=== PATIENT | male | born 1965 | race Caucasian/White ===

== ENCOUNTER 2019-10-05 23:50 | Emergency (ER) | payer BC, SELFPAY ==
--- NOTE | ~2019-10-05 | CT_ITS ---
EXAMINATION: CT abdomen pelvis w con DATE: 10/06/2019 01:48 INDICATION: Abdominal pain and bloating TECHNIQUE: Computed tomography (CT) of the abdomen and pelvis was performed back of Visipaque intrave nous contrast. Automated exposure control and iterative reconstruction technique were employed. The d ose-length product was 1575.66 mGy-cm. COMPARISON: 10/11/2013 FINDINGS: Minimal dependent atelectasis in the right lower lobe. Heart size is normal. No pericardial or pleura l effusion. Small sliding-type hiatal hernia. Small geographic region of likely focal hepatic steatos is along the gallbladder fossa. Gallbladder, spleen, pancreas and bilateral adrenal glands are normal . Bilateral subcentimeter low-attenuation likely renal cysts. There are also bilateral nonobstructing renal stones measuring 2 mm a lower pole calyx of the right kidney and 2-3 mm in a lower pole calyx of the left kidney. Air-fluid level within a 4.5 cm duodenal diverticulum which appears to arise from the third portion of the duodenum. No bowel obstruction. Appendix is normal. There is moderate colon ic diverticulosis with a sigmoid predominance. Focal wall thickening along the sigmoid colon with mil d surrounding stranding which also appears to surround adjacent small epiploic appendage. Several sma ll lymph nodes along the surrounding sigmoid mesentery. Bladder and prostate are unremarkable. Bilate ral fat-containing inguinal hernias. No abscess or free intraperitoneal gas or fluid. Mild lower lumb ar spondylosis. IMPRESSION: 1. Mild inflammatory stranding and mild sigmoid mesenteric lymphadenopathy surrounding a focal region of wall thickening at the mid sigmoid colon. Differential would include malignancy and diverticuliti s. Recommend colonoscopy for further evaluation. 2. Bilateral nonobstructing nephrolithiasis. 3. Small sliding-type hiatal hernia. 4. Bilateral fat-containing inguinal hernias. Reviewed, dictated and finalized at location A. IMPRESSION: 1. Mild inflammatory stranding and mild sigmoid mesenteric lymphadenopathy surr ounding a focal region of wall thickening at the mid sigmoid colon. Differentia l would include malignancy and diverticulitis. Recommend colonoscopy for furthe r evaluation. 2. Bilateral nonobstructing nephrolithiasis. 3. Small sliding-type hiatal hernia. 4. Bilateral fat-containing inguinal hernias.
--- NOTE | ~2019-10-05 | XR_ITS ---
EXAMINATION: XR chest 2V DATE: 10/06/2019 00:37 INDICATION: Shortness of breath TECHNIQUE: PA and lateral views of the chest were obtained. COMPARISON: Chest radiograph dated 06/22/2017 FINDINGS: The lungs remain clear with no focal airspace opacities, pulmonary edema, pleural effusion or pneumot horax. The cardiomediastinal silhouette is normal. Visualized bones and soft tissues are unremarkable . IMPRESSION: 1. No acute cardiopulmonary disease. Reviewed, dictated and finalized at location A.
[2019-10-05 23:59] VITALS: BP 154/92; PULSE 80; RESP 18; TEMP 36.6; O2SAT 100
--- NOTE | 2019-10-06 00:20 | ECG_ITS ---
Measurements Intervals [place] Rate: 82 P: 30 SC: 155 QRS: -53 QRSD: 117 T: 10 QT: 390 QTc: 457 Interpretive Statements SINUS RHYTHM LEFT AXIS DEVIATION LOW QRS VOLTAGE IN PRECORDIAL LEADS POOR R WAVE PROGRESSION, ANTERIOR LEADS BORDERLINE ECG Electronically Signed On 10-06-2019 9:01:29 CDT by Vitor Weinstein D.O.
--- NOTE | 2019-10-06 00:21 | ED.GENADULT ---
HPI - General Adult General Chief complaint: Unspecified Stated complaint: Abd bloating, lower ext edema Time Seen by Provider: 10/05/19 23:54 Source: RN notes reviewed History of Present Illness HPI narrative: Patient presents emergency department from home for abdominal bloating. Patient states that for the past 1 month he has been having progressive bloating of the abdomen as well as swelling in the lower extremities. He states that with this he has noted increased dyspnea with exertion he denies having fevers or chills chest pain shortness of breath at rest abdominal pain nausea vomiting diarrhea or any other symptoms... Patient also requesting evaluation of his right eye he states that over the past month he has been having intermittent drainage from his right eye and matting shot when he awakens he denies any pain in his eye he denies any vision changes he denies any redness of the eye or any other symptoms states that only occurs with the right eye denies any symptoms with the left eye Related Data Home Medications Medication Instructions Recorded Confirmed phenobarbital 145.8 mg PO DAILY 10/06/19 topiramate [Topamax] 50 mg PO DAILY 10/06/19 Allergies Allergy/AdvReac Type Severity Reaction Status Date / Time AMOXICILLIN TRIHYDRATE Allergy Severe SEIZURE Uncoded 10/06/19 00:21 POTASSIUM CLAVULANATE Allergy Mild Unknown Uncoded 10/06/19 00:21 Review of Systems Review of Systems: Narrative: Gen.: Denies fevers or chills Eyes: Denies eye pain or visual change ENT: Denies congestion Respiratory: Reports shortness of breath with exertion CV: Denies chest pain or palpitations GI: Denies abdominal pain nausea, emesis or diarrhea Musculoskeletal: Denies back pain or muscle pain Neuro: Denies numbness, tingling, weakness or focal weakness Skin: Denies rash Except as documented, all other systems reviewed and negative [facility] Past Medical History Medical History (Updated 10/06/19 @ 03:07 by Ang Thayer DO) Epilepsy Social History Social History (Updated 10/06/19 @ 00:22 by Ang Thayer DO) Smoking status: Never smoker Gender identity (if verbalized by the patient): Male Exam Narrative: Exam Narrative: APPEARANCE: No acute distress, nontoxic, resting in bed EYES: EOMI, Gwen, bilateral upper and lower eyelids normal appearance, no conjunctival erythema bilaterally, the right eye has mild mucus seen with flip the lid there is no foreign body seen HEENT: Normocephalic, atraumatic, OMM RESPIRATORY: No respiratory distress Clear to auscultation bilaterally with no rhonchi wheezing or rales. CARDIOVASCULAR: Regular rate and rhythm without murmurs rubs or gallops. ABDOMINAL: Soft, nontender, nondistended, no rebound or guarding bilateral calves soft nontender bilateral MUSCULOSKELETAl: Moves all extremities. No clubbing, cyanosis 3 + edema the bilateral lower extremities posterior tibialis pulse 2+ NEURO: Awake and alert. Following commands, speech normal, no focal deficits SKIN:: Warm, dry. No rashes lesions or abrasions PSYCHIATRIC: Normal affect/mood, Course Course Emergency Course: Discussed with Dr. Montalvo results of CT scan. At this time recommends patient follow-up as an outpatient for colonoscopy with GI Following CT again reevaluate the patient's abdomen is soft and nontender has had no pain doubt epiploic appendagitis Discussed with patient results of workup and diagnosis. Discussed need for follow-up with primary care, proper use of medication, and reasons to return to the emergency department. Patient understands and agrees to current treatment plan. Discussed with patient sigmoid mass with concern of colon cancer need for follow-up with GI as outpatient for repeat colonoscopy Vital Signs Vital signs: Vital Signs Temperature 97.8 F 10/05/19 23:59 Pulse Rate 80 10/05/19 23:59 Respiratory Rate 18 10/05/19 23:59 Blood Pressure 154/92 H 10/05/19 23:59 Pulse Oximetry 100 10/05/19
[2019-10-06 00:48] VITALS: BP 143/93; PULSE 80; RESP 20; O2SAT 94
[2019-10-06 01:02] LABS: Basophils Absolute Auto 0.1 K/mm3 (0.0-0.1); Basophils Percent Auto 1.1 % (0.2-1.2); Eosinophils Absolute Auto 0.4 K/mm3 (0-0.3); Eosinophils Percent Auto 3.8 % (0-4.4); Hematocrit 40.3 % (42.0-52.0); Lymphocytes Percent Auto 21.9 % (18.3-44.2); Mean Corpuscular HGB Conc 32.3 g/dl (32-36); Mean Corpuscular Hemoglobin 30.3 pg (26-34); Mean Corpuscular Volume 93.9 fl (80-100); Monocytes Percent Auto 9.6 % (2.6-8.5); Neutrophils Absolute Auto 6.3 K/mm3 (1.3-6.7); Neutrophils Percent Auto 62.6 % (45.5-73.1); Platelet Count Result 285 k/mm3 (150-375); Red Blood Count 4.29 M/mm3 (4.6-6.20); Red Cell Distribution Width 14.4 % (11.5-14.5); White Blood Count 10.1 K/mm3 (4.5-10.0)
[2019-10-06 01:12] LABS: Prothrombin Time 13.3 Seconds (11.1-14.7)
[2019-10-06 01:15] VITALS: BP 162/92; PULSE 79; RESP 20; O2SAT 93
[2019-10-06 01:15] LABS: Alanine Aminotransferase 20 U/L (4-50); Albumin Level 4.3 g/dL (3.5-5.1); Alkaline Phosphatase 82 U/L (38-126); Aspartate Amino Transferase 30 U/L (17-59); Bilirubin,Total 0.3 mg/dL (0.2-1.3); Blood Urea Nitrogen 16 mg/dL (9-20); Calcium 8.7 mg/dL (8.4-10.2); Carbon Dioxide 26 mmol/L (22-30); Chloride 105 mmol/L (98-107); Estimated CRCL calculation 79 ml/min; Estimated Glomerular Filt Rate > 60; Glucose 128 mg/dL (75-110); Lipase 195 U/L (23-300); Potassium 4.1 mmol/L (3.4-5.0); Sodium 138 mmol/L (137-145)
[2019-10-06 01:27] LABS: NT Pro B Type Natriuretic Pept 31 PG/ML (5-100); Troponin I < 0.012 ng/mL (0.000-0.034)
[2019-10-06 02:02] VITALS: BP 141/82; PULSE 84; RESP 20; O2SAT 94
[2019-10-06 02:49] VITALS: BP 122/79; PULSE 76; RESP 20; O2SAT 94
[2019-10-06 03:19] VITALS: BP 144/89; PULSE 80; RESP 20; O2SAT 93
[2019-10-06 03:44] VITALS: BP 143/84; PULSE 81; RESP 20; O2SAT 93
== END 2019-10-06 03:46 | disposition home or self-care (01) ==
PROVIDERS: Emergency Provider Emergency Medicine; PCP Internal Medicine
DX: K63.9 Disease of intestine, unspecified (principal); R60.0 Localized edema; G40.909 Epilepsy, unspecified, not intractable, without status epilepticus; R94.31 Abnormal electrocardiogram [ECG] [EKG]
CPT/HCPCS: 36415; 71046; 74177; 80053; 83690; 83880; 84484; 85025; 85610; 85730; 93005; 99284; Q9967

== ENCOUNTER 2019-10-13 00:33 | Outpatient (CLI) | payer BC, SELFPAY ==
[2019-10-13 16:39] LABS: SARS-CoV-2 RNA PCR Negative
== END 2019-10-13 00:34 | disposition home or self-care (01) ==
LOC: ANHCOVIDDT 00:34
PROVIDERS: PCP Internal Medicine; Visit Provider Internal Medicine Gastroenterology
DX: Z01.818 Encounter for other preprocedural examination (principal); Z11.59 Encounter for screening for other viral diseases
CPT/HCPCS: 87635; C9803; U0003

== ENCOUNTER 2019-10-16 00:44 | Day surgery (SDC) | payer BC, SELFPAY ==
[2019-10-12 13:16] VITALS: BMI 44.6
[2019-10-16 09:32] VITALS: BP 128/87; PULSE 88; RESP 20; TEMP 36.4; O2SAT 95
[2019-10-16] MEDS: LACTATED RINGERS 1,000 ML 150 ML IV CONT (09:52)
--- NOTE | 2019-10-16 10:21 | WPDANESEPPF ---
Anes - Initial Pre Proc Eval Procedure: Operation Date: 10/16/19 10:45 Proposed Procedures p Colonoscopy - Haroldo Candelario MD Date/Time: 10/16/19 10:21 Surgeon: Haroldo Candelario MD Pre Op Diagnosis: Abnormal Abdominal CT Patient Data Age: 54 Gender: M Height: 5 ft 7 in Weight: 127.8 kg Last Vital Signs Temp 97.5 F L 10/16/19 09:32 Pulse 88 10/16/19 09:32 Resp 20 10/16/19 09:32 BP 128/87 10/16/19 09:32 Pulse Ox 95 10/16/19 09:32 Allergies Allergy/AdvReac Type Severity Reaction Status Date / Time AMOXICILLIN TRIHYDRATE Allergy Severe SEIZURE Uncoded 10/16/19 09:29 POTASSIUM CLAVULANATE Allergy Mild Unknown Uncoded 10/16/19 09:29 Home Medications Medication Instructions Recorded Confirmed Type erythromycin 0.5 inch EACH EYE QID 4 Days #1 gm 10/06/19 10/16/19 Rx phenobarbital 145.8 mg PO DAILY 10/06/19 10/16/19 History topiramate [Topamax] 50 mg PO DAILY 10/06/19 10/16/19 History Patient hx anesthesia problems: none Family hx anesthesia problems: none PMFSH Past Medical History Medical History (Updated 10/11/19 @ 15:39 by Haroldo Candelario MD) Abnormal CT of the abdomen Bloating Dyspnea on exertion Epilepsy Inguinal hernia bilateral, non-recurrent Leg edema Weight gain Social History Social History (Updated 10/06/19 @ 00:22 by Ang Thayer DO) Smoking status: Never smoker Gender identity (if verbalized by the patient): Male Anes - Eval Final PreProcedure Day of Procedure 10/16/19 10:21 Patient weight: morbidly obese Heart: regular rate and rhythm Lungs: clear to auscultation Airway: Mallampati scale class III Neurological: alert and oriented Last oral intake: >/= 8 hours ASA classification: IV Emergent: no Anesthetic plan: proceed Anesthesia type and monitoring: general GIVS and standard monitoring Informed Consent: The patient's anesthetic plan and its attendant risks and benefits were discussed with the patient/family/POA. Questions were solicited and answers provided to the satisfaction of the patient/family/POA.
--- NOTE | 2019-10-16 11:03 | WPDHPUPDATE1 ---
History and Physical Update Update Date/Time: 10/16/19 11:03 History and Physical has been reviewed, including an updated exam of the patient. There are NO changes in the patient's condition. Risks, benefits, and alternatives have been discussed and questions answered. Patient agrees to proceed with procedure.
--- NOTE | 2019-10-16 11:16 | SUR.OPER ---
1111 PATIENT'S LEFT EARRING PLACED IN THE LOCKER WITH HIS OTHER BELONGINGS. Luis LAI RN
--- NOTE | 2019-10-16 11:18 | SUR.OPER ---
1118 UPDATE GIVEN TO FAMILY VIA THE PHONE. LEILANI MARTÍNEZ
[2019-10-16 11:41] VITALS: BP 118/80; PULSE 83; RESP 16; O2SAT 98
[2019-10-16 11:51] VITALS: BP 114/69; PULSE 78; RESP 14; O2SAT 94
[2019-10-16 12:01] VITALS: BP 111/72; PULSE 80; RESP 20; O2SAT 98
== END 2019-10-16 12:26 | disposition home or self-care (01) ==
PROVIDERS: PCP Internal Medicine; Visit Provider Internal Medicine Gastroenterology
PROC: 0DJD8ZZ Inspection of Lower Intestinal Tract, Via Natural or Artificial Opening Endoscopic (ICD-10-PCS; CPT 45378; principal; 2019-10-16 10:45)
DX: D12.2 Benign neoplasm of ascending colon (principal); K57.30 Diverticulosis of large intestine without perforation or abscess without bleeding; G40.909 Epilepsy, unspecified, not intractable, without status epilepticus; E66.01 Morbid (severe) obesity due to excess calories; Z68.41 Body mass index [BMI] 40.0-44.9, adult
CPT/HCPCS: 45380; 45385; 88305; J2704; J7120

== ENCOUNTER 2019-11-16 12:46 | Outpatient (CLI) | payer BC, SELFPAY ==
[2019-11-16 13:29] LABS: Cholesterol 183 mg/dL (0-200); HDL Direct 49 mg/dL; Triglycerides 145 mg/dL (<150)
[2019-11-16 13:40] LABS: LDL Cholesterol Direct 106 mg/dL
== END 2019-11-16 12:47 | disposition home or self-care (01) ==
PROVIDERS: PCP Internal Medicine; Visit Provider Internal Medicine Cardiovascular Disease
DX: E66.9 Obesity, unspecified (principal)
CPT/HCPCS: 36415; 80061; 84443

== ENCOUNTER 2019-11-28 08:33 | Outpatient (CLI) | payer BC, SELFPAY ==
--- NOTE | 2019-11-28 08:41 | ECHO_ITS ---
Patient Info Name: Abdiel Britton Age: 54 years : 1965 Gender: Male Ht: 67 in Wt: 290 lbs BSA: 2.56 m2 HR: 81 bpm BP: 148 / 91 mmHg Technical Quality: Good Exam Date: 11/28/2019 9:00 AM Exam Location: [facility] Patient Status: Outpatient Admit Date: 11/28/2019 Staff Ordering Physician: Vitor Weinstein DO Industrial Robotics Mechanic: Sia Murray RDCS Attending Provider: Vitor Weinstein DO Exam Type: CA echo doppler color flow Study Info Indications - caballero Complete two-dimensional, color flow and Doppler transthoracic echocardiogram is performed. Summary 1. Left ventricular chamber dimension is normal. 2. Left ventricular systolic function is normal, estimated at 60-65%. 3. The left ventricular diastolic function is grade II diastolic dysfunction. 4. E/e' 9 is minimally elevated. 5. No pulmonary hypertension, estimated pulmonary arterial systolic pressure is 24 mmHg. Left Ventricle E/e' 9 is minimally elevated. Left ventricular chamber dimension is normal. Left ventricular systolic function is normal, estimated at 60-65%. The left ventricular diastolic function is grade II diastolic dysfunction. Right Ventricle Right ventricular chamber dimension is normal. Right ventricular systolic function is normal. Left Atria Left atrial chamber dimension is normal. Right Atria Right atrial chamber dimension is normal. Aortic Valve The aortic valve is trileaflet. There is no aortic valve stenosis. There is no aortic valve regurgitation. Pulmonic Valve There is no pulmonic regurgitation. Mitral Valve There is no mitral valve stenosis. There is no mitral valve regurgitation. Tricuspid Valve There is no tricuspid valve regurgitation. No pulmonary hypertension, estimated pulmonary arterial systolic pressure is 24 mmHg. Pericardium/Pleural There is no pericardial effusion. Inferior Vena Cava Normal inferior vena cava with >50% collapse upon inspiration consistent with normal right atrial pressure, 5 mmHg. Aorta The aortic root size at the sinus of Valsalva is normal. Left Ventricular Outflow Tract Name Value Normal LVOT 2D LVOT Diameter 2.1 cm LVOT Doppler LVOT Peak Gradient 5 mmHg LVOT Mean Gradient 3 mmHg LVOT VTI 22 cm LVOT VTI/AV VTI Ratio 0.6 LVOT Stroke Volume 76 ml LVOT CO 17.6 l/min LVOT CI 6.9 l/min/m2 Pulmonic Valve Name Value Normal PV Doppler PV Peak Gradient 4 mmHg Mitral Valve Name Value Normal MV D
== END 2019-11-28 08:34 | disposition home or self-care (01) ==
PROVIDERS: PCP Internal Medicine; Visit Provider Internal Medicine Cardiovascular Disease
DX: R06.00 Dyspnea, unspecified (principal)
CPT/HCPCS: 93306

== ENCOUNTER 2020-01-29 03:27 | Outpatient (CLI) | payer BC, SELFPAY ==
[2020-01-29 20:03] LABS: SARS-CoV-2 RNA PCR Negative
== END 2020-01-29 03:28 | disposition home or self-care (01) ==
LOC: ANHCOVIDDT 03:27
PROVIDERS: PCP Internal Medicine; Visit Provider Internal Medicine Critical Care Medicine
DX: Z01.812 Encounter for preprocedural laboratory examination (principal); Z20.828 Contact with and (suspected) exposure to other viral communicable diseases
CPT/HCPCS: 87635; C9803; U0003

== ENCOUNTER 2020-01-31 08:02 | Outpatient (CLI) | payer BC, SELFPAY ==
--- NOTE | 2020-02-17 21:26 | SLEEP_ITS ---
SPLIT NIGHT SLEEP STUDY. DATE OF STUDY: 01/31/2020 ORDERING PHYSICIAN: Vitor Weinstein D.O. REASON FOR THE STUDY: Hypersomnia. HISTORY: This patient is a 54-year-old male, 67 inches tall, weighing 285 pounds with a body mass index of 44.6. He has complaints of loud snoring, waking up during the night and excessive daytime somnolence. He wakes up throughout the night. There is a positive family history with his mother having sleep apnea. He constantly snores and it is constantly loud enough that others complain about it. He occasionally has trouble sleeping with a cold. He rarely gasps for breath at night or has breathing problems at night told to him by others, occasionally sweats excessively at night, rarely notices his heart pounding or beating irregularly at night, frequently falls asleep during the day, occasionally involuntarily, but never while driving. He does not have loss of muscle tone with strong emotion. He occasionally has daytime difficulties due to excessive sleepiness, works in housekeeping. He never feels paralyzed on waking or falling asleep. He occasionally has vivid dreamlike scenes upon awakening or falling asleep. He never is afraid to go to sleep. He rarely has nightmares, occasionally remembers his dreams. He never has racing thoughts to his mind, or feelings of sadness or depression. He rarely feels anxiety. He occasionally has muscular tension and occasionally notices parts of his body jerking. He rarely kicks at night. He does not have crawling and aching feelings in his legs and does not have leg pain at night. He does not have morning jaw pain, rarely grinds his teeth during sleep. He occasionally is bothered by pain during the day, rarely is awakened by pain at night. He occasionally wakes up feeling stiff in the morning, occasionally with sore achy muscles. He occasionally wakes up with pain in the neck and spine. He takes antacids regularly. Normal bedtime is 2:00 a.m., falling asleep immediately, waking several times at night, and will watch car videos while awake. He wakes in the morning at 10:00 a.m. Weekend schedule reveals he goes to bed an hour later at 3:00 a.m. and wakes at 11:00 a.m. His sleep is disturbed sometimes by noise. He sometimes takes a nap. A short nap is not refreshing. He is usually drowsy for an hour after waking. He feels better in the evening than in the morning. MEDICAL COMORBIDITIES: 1. Heartburn. 2. Epilepsy. 3. Kidney stones. 4. Lower extremity edema. MEDICATIONS: 1. Phenobarbital 148.5 mg daily. 2. Topamax 50 mg daily. HABITS: No history of tobacco smoking. He does not indicate if he uses caffeine or alcohol. DESCRIPTION OF THE STUDY: On the [place] Sleepiness Scale, his score is 9. This was conducted as a split night nocturnal polysomnogram using the [employer]ics multiple channel system including EOG, EEG, submental EMG, EKG, nasal and oral airflow using thermistors and nasal pressure sensors, chest and abdominal belts, body position data and pulse oximetry. The study was scored using [facility] guidelines. Duration of the baseline portion was 228.9 minutes. The sleep time was 162.1 minutes. Sleep efficiency was low at 70.8%. Sleep latency was prolonged at 46.3 minutes. REM latency was short at 85 minutes, which suggest hypersomnolence. The patient had 8 awakenings and spent 20.5 minutes awake after sleep onset. Sleep architecture showed 5.2% stage I sleep, 63.6% stage II sleep, 20.4% stage III sleep, and 10.8% stage REM. He spent no time in the supine position. During the baseline portion, the apnea-hypopnea index was 48.5, all obstructive events. He had 10 obstructive apneas and 15 obstructive hypopneas in non-supine REM for an index of 85.7. He had 3 obstructive apneas and 10
== END 2020-01-31 08:03 | disposition home or self-care (01) ==
LOC: ANHCSM 08:02
PROVIDERS: PCP Internal Medicine; Visit Provider Internal Medicine Cardiovascular Disease
DX: G47.33 Obstructive sleep apnea (adult) (pediatric) (principal)
CPT/HCPCS: 95811

== ENCOUNTER 2021-03-28 12:06 | Inpatient (IN) | payer OTHER, SELFPAY ==
[2021-03-28] VITALS (12 sets, daily range): BP systolic 117–136; BP diastolic 59–80; PULSE 84–92; RESP 14–24; TEMP 37.4–37.6; O2SAT 87–100; BMI 43.6
--- NOTE | ~2021-03-28 | XR_ITS ---
EXAMINATION: XR abdomen NG/feed tube insert DATE: 04/01/2021 13:15 INDICATION: Orogastric tube placement. TECHNIQUE: A semierect view of the abdomen was obtained. COMPARISON: None. FINDINGS: The lower abdomen is excluded. There are no dilated loops of bowel. The orogastric tube tip is in the stomach. IMPRESSION: 1. Orogastric tube in the stomach. Reviewed, dictated and finalized at location B. OITATION ANALYST
--- NOTE | ~2021-03-28 | XR_ITS ---
EXAMINATION: XR chest PICC line INDICATION: PICC insertion TECHNIQUE: Portable AP chest at 1140 hours COMPARISON: 0931 hours FINDINGS: A right upper extremity PICC has been inserted which ends with its tip in the midsuperior v sheila cava. Diffuse airspace opacities persist throughout all lung zones without significant change. Th e endotracheal tube ends approximately 1.4 cm above the santino. The nasogastric tube is followed as f ar as the stomach. Its tip is beyond the inferior margin of the radiograph. No pleural effusion or pn eumothorax is identified. IMPRESSION: 1. Right upper extremity PICC ending in the midsuperior vena cava. 2. Stable diffuse lung disease, consistent with pneumonia and/or pulmonary edema and/or acute respira tory distress syndrome (ARDS). Reviewed, dictated and finalized at location A. E DIRECTOR IMPRESSION: 1. Right upper extremity PICC ending in the midsuperior vena cava. 2. Stable diffuse lung disease, consistent with pneumonia and/or pulmonary danita a and/or acute respiratory distress syndrome (ARDS).
--- NOTE | ~2021-03-28 | XR_ITS ---
EXAMINATION: XR chest 1V portable EXAM DATE: 03/28/2021 13:07 INDICATION: Cough and shortness of breath. TECHNIQUE: Portable AP frontal chest x-ray was obtained. Comparison is made to prior examination from 10/06/2019. FINDINGS: Moderate amount of bilateral ill-defined airspace disease, distribution and appearance is c onsistent with COVID pneumonia which should be considered given community prevalence. Other etiologie s also possible. No pneumothorax or pleural effusion. The cardiomediastinal silhouette is prominent b ut magnified on this AP technique. IMPRESSION: Moderate amount of pneumonia, possibly COVID 19. Reviewed, dictated and finalized at location A. TS REPORTER
--- NOTE | ~2021-03-28 | XR_ITS ---
EXAMINATION: XR chest 1V portable INDICATION: Intubation, COVID 19 pneumonia TECHNIQUE: Portable AP chest at 1028 hours COMPARISON: 04/04/2021 FINDINGS: The endotracheal tube ends approximately 2.9 cm above the santino. The nasogastric tube is f ollowed as far as the stomach. Its tip is beyond the inferior margin of the radiograph. A right upper extremity PICC ends with its tip in the superior vena cava. Diffuse airspace opacities persist with slight worsening in the right mid and upper lung zones. There is no pleural effusion or pneumothorax. The cardiomediastinal silhouette is stable. IMPRESSION: 1. Diffuse lung disease with interval worsening in the right mid and upper lung zones, consistent wit h pneumonia and/or pulmonary edema. Reviewed, dictated and finalized at location A. RINTENDENT SEED MILL IMPRESSION: 1. Diffuse lung disease with interval worsening in the right mid and upper lung zones, consistent with pneumonia and/or pulmonary edema.
--- NOTE | ~2021-03-28 | XR_ITS ---
XR chest 1V portable 04/07/2021 09:28 Indication: Pneumonia. Respiratory failure. Procedure: AP portable chest Comparison: Comparison to multiple prior studies sequentially, with oldest reviewed study dated 03/10. Findings: Endotracheal tube tip 2.7 cm above the santino. NG tube in the stomach. PICC line tip in the SVC. Stable extensive bilateral airspace disease, compatible with pneumonia. No pleural effusion or pneumothorax. PICC line tip in the SVC. Impression: 1: Stable diffuse bilateral airspace disease, compatible with pneumonia. Reviewed, dictated and finalized at location B. EAR PHARMACIST Impression: 1: Stable diffuse bilateral airspace disease, compatible with pneumonia.
--- NOTE | ~2021-03-28 | XR_ITS ---
EXAMINATION: XR chest 1V portable DATE: 04/07/2021 22:13 INDICATION: Decreased oxygen saturation. TECHNIQUE: A single frontal view of the chest was obtained. COMPARISON: Chest single view at 9:13 AM, chest CT 03/29/2021 FINDINGS: There are airspace opacities in all lung zones bilaterally with worsening in left upper lob e and right lower lung zone. There is elevation of right hemidiaphragm. No pleural effusion or pneumo thorax. The heart size is obscured. The endotracheal tube tip is 4.7 cm above the santino. The nasogas tric tube tip is beyond the inferior margin of the radiograph, but at least to the stomach. A right u pper extremity peripherally inserted central venous catheter (PICC) is seen with tip in the superior vena cava. IMPRESSION: 1. Diffuse lung disease with worsening in left upper lobe and right lower lung zone, likely a combina tion of pneumonia and atelectasis. Reviewed, dictated and finalized at location A. RSITY MANAGER IMPRESSION: 1. Diffuse lung disease with worsening in left upper lobe and right lower lung zone, likely a combination of pneumonia and atelectasis.
--- NOTE | ~2021-03-28 | XR_ITS ---
EXAMINATION: XR chest 1V portable INDICATION: Respiratory failure TECHNIQUE: Portable AP chest at 0518 hours COMPARISON: 04/01/2021 FINDINGS: The endotracheal tube ends approximately 3.0 cm above the santino. The nasogastric tube is f ollowed as far as the stomach. Its tip is beyond the inferior margin of the radiograph. Diffuse opaci ties persist throughout all lung zones without significant change. There is no pleural effusion or pn eumothorax. IMPRESSION: 1. Stable diffuse lung disease, consistent with pneumonia and/or pulmonary edema. Reviewed, dictated and finalized at location A. IR OPERATOR IMPRESSION: 1. Stable diffuse lung disease, consistent with pneumonia and/or pulmonary danita a.
--- NOTE | ~2021-03-28 | XR_ITS ---
XR chest ET placement 04/02/2021 14:38 Indication: Endotracheal tube replacement Procedure: AP portable chest Comparison: 04/02 and 04/01/2021 Findings: Endotracheal tube tip 2.1 cm above the santino. NG tube in the stomach. There has been sligh t improvement of diffuse patchy bilateral airspace disease. No significant effusion or pneumothorax. Impression: 1: Slight improvement of extensive patchy bilateral airspace disease, compatible with pneumonia. Reviewed, dictated and finalized at location A. GE MANAGEMENT CONSULTANT Impression: 1: Slight improvement of extensive patchy bilateral airspace disease, compatibl e with pneumonia.
--- NOTE | ~2021-03-28 | CT_ITS ---
EXAMINATION: CTA chest PE protocol EXAM DATE: 03/29/2021 12:19 INDICATION: COVID pneumonia. Shortness of breath, cough and fever. TECHNIQUE: Spiral CTA of the chest (pulmonary arteries) was performed with 100 cc Omnipaque 350 intr avenous contrast injection. Images were acquired during the pulmonary arterial phase. Coronal maxi mum intensity projection 3D-reconstructions were created by the technologist on dedicated workstation . Axial, coronal and sagittal reformatted images were reviewed. The dose-length product (DLP) for t his examination was 1005.37 mGy-cm. The exposure was tailored according to patient size (auto mA ex posure control), and iterative reconstruction (ASIR) was used as additional dose reduction technique. Correlation is made to chest x-ray from yesterday. FINDINGS: Pulmonary arteries are well opacified and without intraluminal filling defects. No thora cic aortic dissection. Moderate amount of groundglass airspace disease involving all lobes, appearan ce is consistent with acute stage of COVID pneumonia. There are no pleural or pericardial effusions . Tracheobronchial tree is patent. There is no mediastinal, hilar or axillary lymphadenopathy. There is no pneumothorax. Heart normal in size. No evidence of coronary arterial calcification. Upper abdomen is unremarkable. No osteoblastic or osteolytic lesions identified. IMPRESSION: 1. Moderate amount of acute airspace disease likely COVID pneumonia. 2. No pulmonary emboli. Reviewed, dictated and finalized at location A. ENGLISH TUTOR
--- NOTE | ~2021-03-28 | XR_ITS ---
EXAMINATION: XR chest 1V portable DATE: 04/03/2021 10:08 INDICATION: COVID pneumonia. Respiratory failure. TECHNIQUE: frontal view of the chest was obtained. COMPARISON: Chest radiograph dated 04/02/2021 FINDINGS: Endotracheal tube tip 1.2 cm above the santino. Nasogastric tube extends below the left hemidiaphragm with distal tip collimated off the study. Again seen are bilateral patchy and streaky airspace opacities throughout both lungs. No pneumothorax or definitive pleural effusion. There appears to been some increase at the lower lung zones although the left lung volume is also slightly decreased. The cardiomediastinal silhouette is normal. Visuali zed bones and soft tissues are unremarkable. IMPRESSION: 1. Slight progression at the lung bases in the extensive bilateral patchy and streaky airspace opacit ies consistent with pneumonia. Reviewed, dictated and finalized at location A. R METAL PATTERNS IMPRESSION: 1. Slight progression at the lung bases in the extensive bilateral patchy and s treaky airspace opacities consistent with pneumonia.
--- NOTE | ~2021-03-28 | XR_ITS ---
XR chest 1V portable 04/08/2021 08:15 Indication: Respiratory failure Procedure: AP portable chest Comparison: Comparison to multiple prior studies sequentially, with oldest reviewed study dated 03/10. Findings: Endotracheal tube tip 3.5 cm above the santino. NG tube in the stomach. There is diffuse gabriella ateral airspace disease. Possible small effusion. No pneumothorax. PICC line tip in the SVC. Impression: 1: Diffuse bilateral airspace disease which may represent edema, pneumonia or ARDS. Reviewed, dictated and finalized at location B. ING MACHINE OPERATOR Impression: 1: Diffuse bilateral airspace disease which may represent edema, pneumonia or A RDS.
--- NOTE | ~2021-03-28 | XR_ITS ---
EXAMINATION: XR chest ET placement DATE: 04/01/2021 13:16 INDICATION: Intubation. TECHNIQUE: A single frontal view of the chest was obtained. COMPARISON: Chest single view 03/31/2021 FINDINGS: There are airspace opacities in all lung zones bilaterally. Left lateral costophrenic angle is excluded. No pleural effusion or pneumothorax. The heart size is normal. The endotracheal tube ti p is 3.0 cm above the santino. Tubing overlies the neck. IMPRESSION: 1. Stable diffuse lung disease, consistent with COVID-19 pneumonia. Reviewed, dictated and finalized at location B. DDED SOFTWARE DESIGN ENGINEER
--- NOTE | ~2021-03-28 | XR_ITS ---
EXAMINATION: XR chest 1V portable DATE: 04/06/2021 10:35 INDICATION: COVID pneumonia. Respiratory failure. TECHNIQUE: frontal view of the chest was obtained. COMPARISON: Chest radiograph dated 04/05/2021 FINDINGS: Endotracheal tube tip 1.7 cm above the santino. Nasogastric tube extends below the left hemidiaphragm with distal tip collimated off the study. Right upper extremity peripherally inserted central venous catheter (PICC) tip at the superior vena cava. No significant change accounting for differences in patient positioning in patchy bilateral airspace opacities most prominent in the left mid to lower and right mid lung zones. No pleural effusion or pn eumothorax. The cardiomediastinal silhouette is normal. IMPRESSION: 1. No significant change in patchy bilateral lung disease consistent with pneumonia. Reviewed, dictated and finalized at location A. BOTOMY SERVICES REPRESENTATIVE IMPRESSION: 1. No significant change in patchy bilateral lung disease consistent with pneum onia.
--- NOTE | ~2021-03-28 | XR_ITS ---
EXAMINATION: XR chest 1V portable DATE: 03/31/2021 17:22 INDICATION: COVID TECHNIQUE: frontal view of the chest was obtained. COMPARISON: Chest radiograph dated 03/28/[address] dated 03/29/2021 FINDINGS: Interval worsening of patchy airspace opacities throughout both lungs relatively sparing the apices w ith appearance on CT most consistent with COVID pneumonia. No pleural effusion or pneumothorax. The c ardiomediastinal silhouette is normal. Visualized bones and soft tissues are unremarkable. IMPRESSION: 1. Progression of diffuse bilateral lung disease consistent with COVID pneumonia. Reviewed, dictated and finalized at location A. MAN IMPRESSION: 1. Progression of diffuse bilateral lung disease consistent with COVID pneumoni a.
--- NOTE | ~2021-03-28 | XR_ITS ---
EXAMINATION: XR chest 1V portable INDICATION: Intubation, COVID 19 pneumonia TECHNIQUE: Portable AP chest at 1029 hours COMPARISON: 04/03/2021 FINDINGS: The endotracheal tube ends approximately 2.3 cm above the santino. The nasogastric tube is f ollowed as far as the stomach. Its tip is beyond the inferior margin of the radiograph. Patchy bilate ral airspace opacities persist with improvement on the left and slight worsening in the right midlung zone. The cardiomediastinal silhouette is stable. No pleural effusion or pneumothorax is identified. A right upper extremity PICC ends with its tip in the proximal superior vena cava. IMPRESSION: 1. Diffuse lung disease with slight improvement on the left and slight worsening in the right midlung zone, consistent with pneumonia and/or pulmonary edema. Reviewed, dictated and finalized at location A. OARD ACTION ASSEMBLER IMPRESSION: 1. Diffuse lung disease with slight improvement on the left and slight worsenin g in the right midlung zone, consistent with pneumonia and/or pulmonary edema.
--- NOTE | 2021-03-28 12:11 | ECG_ITS ---
Measurements Intervals [place] Rate: 90 P: 30 NV: 151 QRS: -57 QRSD: 104 T: 33 QT: 357 QTc: 437 Interpretive Statements SINUS RHYTHM LEFT AXIS DEVIATION INCOMPLETE RIGHT BUNDLE BRANCH BLOCK LOW QRS VOLTAGE IN PRECORDIAL LEADS POOR R WAVE PROGRESSION, ANTERIOR LEADS BASELINE WANDER- AVF, V1-V3 BORDERLINE ECG Electronically Signed On 03-28-2021 19:44:29 WAREHOUSE CONSULTANT by Vitor Weinstein D.O.
[2021-03-28 12:37] LABS: Basophils Percent Auto 0.1 % (0.2-1.2); Hematocrit 37.7 % (42.0-52.0); Hemoglobin 12.6 g/dL (14.0-18.0); Immature Granulocyte Absolute 0.03 K/mm3 (0.00-0.031); Immature Granulocyte Percent A 0.4 % (0-0.5); Lymphocytes Percent Auto 10.9 % (18.3-44.2); Mean Corpuscular HGB Conc 33.4 g/dl (32-36); Mean Corpuscular Hemoglobin 30.3 pg (26-34); Mean Corpuscular Volume 90.6 fl (80-100); Mean Platelet Volume 9.5 fl (7.4-10.4); Monocytes Absolute Auto 0.5 K/mm3 (0.1-0.6); Monocytes Percent Auto 6.7 % (2.6-8.5); Neutrophils Percent Auto 81.9 % (45.5-73.1); Platelet Count Result 217 k/mm3 (150-375); Red Blood Count 4.16 M/mm3 (4.6-6.20); Red Cell Distribution Width 14.1 % (11.5-14.5); White Blood Count 7.3 K/mm3 (4.5-10.0)
[2021-03-28 13:17] LABS: Alanine Aminotransferase 34 U/L (4-50); Albumin Level 3.9 g/dL (3.5-5.1); Alkaline Phosphatase 72 U/L (38-126); Anion Gap 7 mmol/L (8-16); Aspartate Amino Transferase 65 U/L (17-59); Bilirubin,Total 0.3 mg/dL (0.2-1.3); Blood Urea Nitrogen 17 mg/dL (9-20); Calcium 7.8 mg/dL (8.4-10.2); Carbon Dioxide 27 mmol/L (22-30); Chloride 102 mmol/L (98-107); Estimated CRCL calculation 82 ml/min; Estimated Glomerular Filt Rate > 60; Glucose 153 mg/dL (65-110); Potassium 3.5 mmol/L (3.4-5.0); Sodium 136 mmol/L (137-145)
--- NOTE | 2021-03-28 14:10 | PC.NURSE ---
Pt placed on 02 @ 3l NC. spo2 was 86-87% on room air prior to oxygen.
--- NOTE | 2021-03-28 14:43 | ED.SOB ---
HPI - SOB/Dyspnea General Chief Complaint: Shortness of Breath/Dyspnea Stated Complaint: n/v headache Time Seen by Provider: 03/28/21 13:41 Source: patient Mode of arrival: ambulatory Limitations: no limitations History of Present Illness HPI Narrative: 55-year-old male past medical history of seizure disorder obesity coming in with 1 week history of shortness of breath, fever, inability to taste or smell and decreased appetite. Shortness of breath worse at night and worse with exertion. Patient did not get his Covid vaccination. Also complains of fever. No chest pain, no leg swelling, no new medications, has not taken anything for fever at home. Came in today bc increasing SOB and unable to eat/ MD elicited complaint: shortness of breath, cough and pain with inspiration Onset (ago): week(s) (1) Timing: progressively worsening Severity: moderate Exacerbating factors: lying flat and exertion Known history of: other (No Covid vaccination; no chest pain, no leg swelling, no paresthesias, no syncope no nausea no vomiting.) Related Data Home Medications Medication Instructions Recorded Confirmed phenobarbital 145.8 mg PO DAILY 10/06/19 04/18/20 topiramate [Topamax] 50 mg PO DAILY 10/06/19 04/18/20 Allergies Allergy/AdvReac Type Severity Reaction Status Date / Time AMOXICILLIN TRIHYDRATE Allergy Severe SEIZURE Uncoded 03/28/21 12:52 POTASSIUM CLAVULANATE Allergy Mild Unknown Uncoded 03/28/21 12:52 Review of Systems Review of Systems: CONSTITUTIONAL: positive for fever, no weight loss, no confusion EYES: no vision changes, no eye pain ENT: no rhinorrhea, no sore throat, no difficulty swallowing CARDIOVASCULAR: no chest pain, no leg edema, no palpitations RESPIRATORY: positive for cough, positive for shortness of breath, no hemoptysis GASTROINTESTINAL: no abdominal pain, no nausea, no vomiting, no diarrhea GENITOURINARY: no flank pain, no dysuria, no hematuria SKIN: no rash, no jaundice MUSCULOSKELETAL: no back pain, no trauma. NEUROLOGIC: No headache, no dizziness, no focal weakness PSYCHIATRIC: No hallucinations, no suicidal ideation [facility] Past Medical History Medical History Abnormal CT of the abdomen Bloating Dyspnea on exertion Epilepsy Inguinal hernia bilateral, non-recurrent Leg edema Weight gain Social History Social History Smoking status: Never smoker Alcohol intake: never Gender identity (if verbalized by the patient): Male Exam Narrative: General: alert, afebrile, answering all questions appropriately Head: normocephalic, atraumatic Eyes: EOMI bilaterally, anicteric, no injection ENT: moist mucous membranes, oropharynx patent, no rhinorrhea Neck: supple, trachea midline, no JVD Chest: equal chest rise bilaterally, no chest wall trauma noted Lungs: decrased breath sounds bilaterally, respirations labored CV: tachycardia, regulr rate, no ILSA B, calf size equal bilaterally Abd: soft, non-distended, non-tender, no rebound, no gaurding, negative Eubanks's : no CVA tenderness B, bladder non-distended EXT: no deformity noted, moving all extremities equally Skin: warm, dry, no pallor Neuro: alert, oriented x 3; CN 2-12 grossly intact, no dysarthria Psych: affect appropriate, though content normal Course Course Emergency Course: 55-year-old male with history of obesity, seizure disorder now with 1 week history of cough and shortness of breath worse over the last day unable to eat unable to taste or smell no history of Covid vaccination. Bilateral pneumonia on x-ray consistent with Covid pneumonia. On exam patient goes down to 87% on room air at rest. Improves with 3 L nasal cannula oxygen. Speaking full sentences without difficulty. Due to hypoxia, will admit patient for COVID PUI, bilateral pneumonia Consultations Consultation #1: SPoke with Hospitalist. Will give decadron. patient for adm
--- NOTE | 2021-03-28 18:30 | PC.NURSE ---
This patient, Abdiel Britton, was admitted to [facility] Surg Room 320-01. Patient/family oriented to hospital policies and general routines including ID bracelet, bed and alarms, visiting hours, pain management, procedures, bathroom and other care routines, personal items, smoking policy, room service/diet, and visiting hours.. Report received from Deneen MARTÍNEZ Information on how to activate the Rapid Response Team has been discussed. Patient/Family are encouraged to report perceived risks to care and to ask questions if they do not understand what they are told or what they should do.
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
[2021-03-28] MEDS: TOPIRAMATE 25 MG TABLET 50 MG PO (22:30)
[2021-03-28] MEDS: MELATONIN 5 MG TABLET PO (22:30)
[2021-03-28] MEDS: PHENobarbitaL (*CRX) 30 MG TABLET PO (22:30)
[2021-03-28] MEDS: PHENobarbital (*CRX) 60 MG TABLET 120 MG PO (22:30)
[2021-03-28] MEDS: guaiFENesin/DEXTROMETHORPHAN 10 ML UDC PO (22:36)
[2021-03-28 22:54] LABS: Glucose Point of Care 103 mg/dl (65-105)
[2021-03-28 22:59] LABS: Phenytoin Dilantin < 3 ug/mL (10-20)
[2021-03-29] VITALS (13 sets, daily range): BP systolic 94–116; BP diastolic 49–71; PULSE 77–88; RESP 16–22; TEMP 36.5–36.9; O2SAT 91–96
--- NOTE | 2021-03-29 04:03 | PCRCNOTE ---
Pt wears CPAP at home but is not interested in using one of our machines while he is here. Pt was advised to let his nurse know if he changes his mind.
--- NOTE | 2021-03-29 04:04 | PCRCNOTE ---
Pt did not receive 02:00 albuterol inhaler. RT was at emergency and unavailable to administer treatment.
[2021-03-29] MEDS: guaiFENesin/DEXTROMETHORPHAN 10 ML UDC PO ×3 (04:20→23:52)
[2021-03-29 06:38] LABS: Basophils Percent Auto 0.1 % (0.2-1.2); Hematocrit 37.2 % (42.0-52.0); Hemoglobin 12.1 g/dL (14.0-18.0); Immature Granulocyte Absolute 0.04 K/mm3 (0.00-0.031); Immature Granulocyte Percent A 0.5 % (0-0.5); Lymphocytes Percent Auto 7.3 % (18.3-44.2); Mean Corpuscular HGB Conc 32.5 g/dl (32-36); Mean Corpuscular Hemoglobin 29.4 pg (26-34); Mean Corpuscular Volume 90.3 fl (80-100); Monocytes Absolute Auto 0.4 K/mm3 (0.1-0.6); Monocytes Percent Auto 5.4 % (2.6-8.5); Neutrophils Absolute Auto 7.1 K/mm3 (1.3-6.7); Neutrophils Percent Auto 86.7 % (45.5-73.1); Platelet Count Result 221 k/mm3 (150-375); Red Blood Count 4.12 M/mm3 (4.6-6.20); Red Cell Distribution Width 14.2 % (11.5-14.5); White Blood Count 8.2 K/mm3 (4.5-10.0)
[2021-03-29 06:50] LABS: Creatine Kinase 394 U/L (55-170); Lactate Dehydrogenase 1263 U/L (313-618); Lactic Acid Reflex 0.7 mmol/L (0.7-2.1); Magnesium 2.3 mg/dL (1.6-2.3)
[2021-03-29 06:59] LABS: D Dimer 0.81 ug/mL (<0.48)
[2021-03-29 07:22] LABS: Thyroid Stimulating Hormone Reflex 0.625 uIU/mL (0.465-4.68)
[2021-03-29 07:29] LABS: Hemoglobin A1C 6.5 % (<5.7)
[2021-03-29] MEDS: ENOXAPARIN 40 MG/0.4 ML SYRINGE SUB-Q (08:43)
[2021-03-29] MEDS: ALBUTEROL SULFATE (*SP) INHALER 2 PUFF INHALATION ×3 (08:47→21:48)
[2021-03-29 09:27] LABS: Glucose Point of Care 154 mg/dl (65-105)
--- NOTE | 2021-03-29 12:52 | PM.IMPN ---
Progress Note: A&P Assessment and Plan (1) Bilateral interstitial pneumonia: Code(s): J84.9 - Interstitial pulmonary disease, unspecified Status: Acute Assessment and Plan: -azithromycin and Rocephin for community-acquired pneumonia -chest x-ray was read as moderate amount of pneumonia possibly COVID-19, will consider stopping abx pending COVID test result -dexamethasone -Supplemental oxygen as needed (2) Person under investigation for COVID-19: Code(s): Z20.822 - Contact with and (suspected) exposure to COVID-19 Status: Acute Assessment and Plan: -The patient is on contact and droplet isolation. -The patient has oxygen on 4 L per nasal cannula. -The patient was started on dexamethasone. -D dimer elevated, likely due to covid. CTA ordered to rule out PE. (3) Epilepsy: Qualifiers: Epilepsy type: unspecified Code(s): G40.909 - Epilepsy, unspecified, not intractable, without status epilepticus Status: Acute Assessment and Plan: -Continue with Topamax and phenobarbital. -Check Phenobarbital level (4) Elevated blood sugar: Code(s): R73.9 - Hyperglycemia, unspecified Status: Acute Assessment and Plan: -Patient has a slightly elevated blood sugar. -A1c 6.5 consistent w/ new onset diabetes. -Will do sliding scale insulin with Accu-Cheks AC and HS. -he patient is currently on Decadron. Subjective Date/time seen: 03/29/21 12:52 55-year-old male past medical history of seizure disorder and morbid obesity, admitted to the hospital for pneumonia, hypoxia, and COVID rule out. Today pt states he feels okay. He is resting comfortably on 4L NC and denies sob. No cp. Reports being agitated last night and unable to sleep. Still coughing. Otherwise no complaints. Review of Systems Review of Systems: General: + fevers, +chills, +bodyaches Eyes: Denies vision changes or eye pain ENT: + nasal congestion, + rhinorrhea Respiratory: + cough, no shortness of breath Cardiovascular: Denies chest pain, palpitations, or lower extremity edema Gastrointestinal: Denies abdominal pain, vomiting, or diarrhea Genitourinary: Denies dysuria or urinary frequency Musculoskeletal: Denies back pain or muscle aches Neurological: Denies headache, paraesthesias, or motor weakness Integumentary: Denies rash or other skin lesions Objective Data Vital Signs Vital Signs: Vital Signs - 24 hr 03/28/21 12:53 03/28/21 13:02 03/28/21 13:39 Temperature Pulse Rate 88 88 85 Respiratory Rate 14 20 Blood Pressure 127/80 Pulse Oximetry 93 90 94 03/28/21 14:00 03/28/21 14:05 03/28/21 14:47 Temperature Pulse Rate 84 Respiratory Rate 22 H Blood Pressure 136/76 Pulse Oximetry 88 L 100 97 03/28/21 16:14 03/28/21 18:35 03/28/21 20:00 Temperature 99.4 F Pulse Rate 87 87 88 Respiratory Rate 20 22 H Blood Pressure 131/69 122/75 Pulse Oximetry 97 87 L 94 03/28/21 22:00 03/29/21 00:00 03/29/21 04:00 Temperature 99.6 F Pulse Rate 91 88 79 Respiratory Rate 18 Blood Pressure 117/59 L Pulse Oximetry 94 03/29/21 06:00 03/29/21 08:00 03/29/21 08:40 Temperature 97.7 F 98.1 F Pulse Rate 81 86 Respiratory Rate 18 16 Blood Pressure 109/63 94/49 L Pulse Oximetry 92 91 93 03/29/21 08:52 03/29/21 10:00 Temperature Pulse Rate Respiratory Rate Blood Pressure Pulse Oximetry 91 92 Intake/Output Intake/Output: Intake & Output 03/26/21 03/27/21 03/28/21 03/29/21 23:59 23:59 23:59 23:59 Intake Total 50 1000 Balance 50 1000 Meds/Results Medications: Active Medications Generic Name Dose Route Start Last Admin Trade Name Freq PRN Reason Stop Dose Admin Acetaminophen 650 mg 03/28/21 21:36 Acetaminophen 325 Mg Tablet PO Q4H PRN Headache Albuterol 2 puff 03/29/21 02:00 03/29/21 08:47 Albuterol Sulfate (*Sp) Inhaler INHALATION 2 puff Q6HRT [facility]
[2021-03-29 13:11] LABS: Glucose Point of Care 176 mg/dl (65-105)
[2021-03-29 17:54] LABS: Glucose Point of Care 179 mg/dl (65-105)
[2021-03-29] MEDS: PHENobarbital (*CRX) 60 MG TABLET 120 MG PO (21:17)
[2021-03-29] MEDS: TOPIRAMATE 25 MG TABLET 50 MG PO (21:17)
[2021-03-29] MEDS: PHENobarbitaL (*CRX) 30 MG TABLET PO (21:18)
[2021-03-29] MEDS: MELATONIN 5 MG TABLET PO (21:18)
[2021-03-30] VITALS (9 sets, daily range): BP systolic 111–145; BP diastolic 40–76; PULSE 80–95; RESP 18–24; TEMP 36.3–37.3; O2SAT 90–93; BMI 43.6
[2021-03-30] MEDS: ALBUTEROL SULFATE (*SP) INHALER 2 PUFF INHALATION ×4 (02:37→20:24)
[2021-03-30 06:31] LABS: Basophils Percent Auto 0.1 % (0.2-1.2); Hematocrit 38.8 % (42.0-52.0); Hemoglobin 12.6 g/dL (14.0-18.0); Immature Granulocyte Absolute 0.08 K/mm3 (0.00-0.031); Immature Granulocyte Percent A 0.7 % (0-0.5); Lymphocytes Absolute Auto 0.88 K/mm3 (0.9-3.2); Lymphocytes Percent Auto 7.8 % (18.3-44.2); Mean Corpuscular HGB Conc 32.5 g/dl (32-36); Mean Corpuscular Hemoglobin 30.2 pg (26-34); Mean Platelet Volume 10.3 fl (7.4-10.4); Monocytes Absolute Auto 0.4 K/mm3 (0.1-0.6); Monocytes Percent Auto 3.7 % (2.6-8.5); Neutrophils Percent Auto 87.7 % (45.5-73.1); Platelet Count Result 251 k/mm3 (150-375); Red Blood Count 4.17 M/mm3 (4.6-6.20); Red Cell Distribution Width 14.2 % (11.5-14.5); White Blood Count 11.4 K/mm3 (4.5-10.0)
[2021-03-30 06:43] LABS: Alanine Aminotransferase 54 U/L (4-50); Albumin Level 3.9 g/dL (3.5-5.1); Alkaline Phosphatase 76 U/L (38-126); Anion Gap 7 mmol/L (8-16); Aspartate Amino Transferase 94 U/L (17-59); Bilirubin,Total 0.3 mg/dL (0.2-1.3); Blood Urea Nitrogen 18 mg/dL (9-20); Calcium 8.4 mg/dL (8.4-10.2); Carbon Dioxide 33 mmol/L (22-30); Chloride 99 mmol/L (98-107); Estimated CRCL calculation 68 ml/min; Estimated Glomerular Filt Rate 52; Glucose 116 mg/dL (65-110); Potassium 3.8 mmol/L (3.4-5.0); Sodium 139 mmol/L (137-145)
[2021-03-30] MEDS: guaiFENesin/DEXTROMETHORPHAN 10 ML UDC PO (07:45)
[2021-03-30] MEDS: ENOXAPARIN 40 MG/0.4 ML SYRINGE SUB-Q (07:49)
[2021-03-30 08:51] LABS: Glucose Point of Care 132 mg/dl (65-105)
[2021-03-30 12:32] LABS: Glucose Point of Care 157 mg/dl (65-105)
--- NOTE | 2021-03-30 14:04 | PCNSR ---
On 03/30/21, the student,Alessandra Marmolejo, provided care and completed [facility] documentation on this patient. I have reviewed the student's documentation and agree with the findings.
--- NOTE | 2021-03-30 15:23 | PM.IMPN ---
Progress Note: A&P Assessment and Plan (1) Bilateral interstitial pneumonia: Code(s): J84.9 - Interstitial pulmonary disease, unspecified Status: Acute Assessment and Plan: -azithromycin and Rocephin -chest x-ray was read as moderate amount of pneumonia possibly COVID-19, will consider stopping abx pending COVID test result -dexamethasone -Supplemental oxygen as needed (2) Person under investigation for COVID-19: Code(s): Z20.822 - Contact with and (suspected) exposure to COVID-19 Status: Acute Assessment and Plan: -The patient is on contact and droplet isolation. -The patient has oxygen on 4 L per nasal cannula. -The patient was started on dexamethasone. -D dimer elevated, likely due to covid. -CTA no PE but did show bilateral infiltrates consistent with COVID -pcr still pending -consider stopping abx and starting remdesivir pending result (3) Epilepsy: Qualifiers: Epilepsy type: unspecified Code(s): G40.909 - Epilepsy, unspecified, not intractable, without status epilepticus Status: Acute Assessment and Plan: -Continue with Topamax and phenobarbital. -Check Phenobarbital level (4) Elevated blood sugar: Code(s): R73.9 - Hyperglycemia, unspecified Status: Acute Assessment and Plan: -Patient has a slightly elevated blood sugar. -A1c 6.5 consistent w/ new onset diabetes. -Will do sliding scale insulin with Accu-Cheks AC and HS. -the patient is currently on Decadron. Subjective Date/time seen: 03/30/21 15:23 Interval history: 55-year-old male past medical history of seizure disorder and morbid obesity, admitted to the hospital for pneumonia, hypoxia, and COVID rule out. Today patient states he feels okay. He is having a bad cough still w/ some sob but feels better on the oxygen. He is on 4L NC currently. No fevers. Does endorse some new nausea and 2 episodes of diarrhea today. No abdominal pain. Review of Systems Review of Systems: General: No fever, chills Eyes: Denies vision changes or eye pain ENT: + nasal congestion, + rhinorrhea Respiratory: + cough, + shortness of breath Cardiovascular: Denies chest pain, palpitations, or lower extremity edema Gastrointestinal: Denies abdominal pain or vomiting, + diarrhea Genitourinary: Denies dysuria or urinary frequency Musculoskeletal: Denies back pain or muscle aches Neurological: Denies headache, paraesthesias, or motor weakness Integumentary: Denies rash or other skin lesions Exam Narrative: General: No acute distress, mildly ill appearing, obese Eyes: PERRL, no scleral icterus HEENT: NCAT, external ears normal, MMM Respiratory: No respiratory distress, Lungs CTA bilaterally, no wheezing Cardiovascular: RRR, no murmur Abdominal: Soft, nontender, non distended, no rebound or guarding Musculoskeletal: Moves all 4 extremities, no edema Neurological: A/Ox3, speech normal, no facial asymmetry Skin: Warm, dry, no rashes Psychiatric: Normal affect, normal mood Objective Data Vital Signs Vital Signs: Vital Signs - 24 hr 03/29/21 16:00 03/29/21 20:00 03/29/21 21:49 Temperature 98.4 F Pulse Rate 87 77 80 Respiratory Rate 22 H 22 H Blood Pressure 116/71 Pulse Oximetry 93 03/29/21 23:48 03/30/21 00:00 03/30/21 02:37 Temperature 97.9 F Pulse Rate 82 82 84 Respiratory Rate 20 20 Blood Pressure 109/61 Pulse Oximetry 91 03/30/21 04:00 03/30/21 08:00 03/30/21 08:24 Temperature 98.3 F 99.2 F Pulse Rate 92 95 Respiratory Rate 18 20 Blood Pressure 113/40 L 111/51 L Pulse Oximetry 90 91 93 03/30/21 12:00 Temperature 97.5 F L Pulse Rate 87 Respiratory Rate 24 H Blood Pressure 121/73 Pulse Oximetry 91 Intake/Output Intake/Output: Intake & Output 03/27/21 03/28/21 03/29/21 03/30/21 23:59 23:59 23:59 23:59 Intake Total 50 1240 690 Balance 50 1240 690 Meds/Results Medications: Active Medicatio
[2021-03-30 18:22] LABS: Glucose Point of Care 171 mg/dl (65-105)
[2021-03-30] MEDS: PHENobarbitaL (*CRX) 30 MG TABLET PO (21:05)
[2021-03-30] MEDS: MELATONIN 5 MG TABLET PO (21:05)
[2021-03-30] MEDS: TOPIRAMATE 25 MG TABLET 50 MG PO (21:05)
[2021-03-30] MEDS: PHENobarbital (*CRX) 60 MG TABLET 120 MG PO (21:05)
[2021-03-30 21:43] LABS: Glucose Point of Care 122 mg/dl (65-105)
[2021-03-31] VITALS (22 sets, daily range): BP systolic 105–121; BP diastolic 49–75; PULSE 80–100; RESP 18–26; TEMP 36.6–38.1; O2SAT 85–95
[2021-03-31] MEDS: ALBUTEROL SULFATE (*SP) INHALER 2 PUFF INHALATION ×4 (02:03→20:32)
[2021-03-31] MEDS: ACETAMINOPHEN 325 MG TABLET 650 MG PO (04:59)
[2021-03-31 05:41] LABS: Basophils Percent Auto 0.1 % (0.2-1.2); Hematocrit 36.1 % (42.0-52.0); Hemoglobin 11.8 g/dL (14.0-18.0); Immature Granulocyte Absolute 0.15 K/mm3 (0.00-0.031); Immature Granulocyte Percent A 1.4 % (0-0.5); Lymphocytes Percent Auto 5.6 % (18.3-44.2); Mean Corpuscular HGB Conc 32.7 g/dl (32-36); Mean Corpuscular Hemoglobin 29.8 pg (26-34); Mean Corpuscular Volume 91.2 fl (80-100); Mean Platelet Volume 10.2 fl (7.4-10.4); Monocytes Absolute Auto 0.3 K/mm3 (0.1-0.6); Monocytes Percent Auto 3.2 % (2.6-8.5); Neutrophils Absolute Auto 9.7 K/mm3 (1.3-6.7); Neutrophils Percent Auto 89.7 % (45.5-73.1); Platelet Count Result 280 k/mm3 (150-375); Red Blood Count 3.96 M/mm3 (4.6-6.20); Red Cell Distribution Width 14.1 % (11.5-14.5); White Blood Count 10.8 K/mm3 (4.5-10.0)
[2021-03-31 05:54] LABS: Alanine Aminotransferase 54 U/L (4-50); Albumin Level 3.8 g/dL (3.5-5.1); Alkaline Phosphatase 70 U/L (38-126); Anion Gap 7 mmol/L (8-16); Aspartate Amino Transferase 84 U/L (17-59); Bilirubin,Total 0.3 mg/dL (0.2-1.3); Blood Urea Nitrogen 20 mg/dL (9-20); Calcium 8.1 mg/dL (8.4-10.2); Carbon Dioxide 31 mmol/L (22-30); Chloride 95 mmol/L (98-107); Estimated CRCL calculation 72 ml/min; Estimated Glomerular Filt Rate 57; Glucose 115 mg/dL (65-110); Potassium 3.5 mmol/L (3.4-5.0); Sodium 133 mmol/L (137-145)
[2021-03-31 08:28] LABS: Glucose Point of Care 108 mg/dl (65-105)
[2021-03-31] MEDS: ENOXAPARIN 40 MG/0.4 ML SYRINGE SUB-Q (08:51)
[2021-03-31 09:12] LABS: EDCOVIDSCREEN Positive (Negative)
[2021-03-31 12:41] LABS: Glucose Point of Care 204 mg/dl (65-105)
[2021-03-31] MEDS: INSULIN ASPART (*BKC) 100 UNITS/ML SUB-Q ×2 (13:02→16:59)
[2021-03-31 13:33] LABS: INR 1.1; Prothrombin Time 14.1 Seconds (11.1-14.7)
[2021-03-31] MEDS: REMDESIVIR 200 MG/NS 250 ML 200 MG/250 ML BAG 250 MG IVPB (13:54)
[2021-03-31 16:52] LABS: Glucose Point of Care 254 mg/dl (65-105)
--- NOTE | 2021-03-31 16:54 | PM.IMPN ---
Progress Note: A&P Assessment and Plan (1) Pneumonia due to COVID-19 virus: Code(s): U07.1 - COVID-19; J12.82 - Pneumonia due to coronavirus disease 2019 Status: Acute Assessment and Plan: Patient presented with bilateral infiltrates on his CTA and has been febrile -we have been awaiting the PCR for multiple days so a rapid test was done and is positive -patient is now on 15 L. Remdesivir and baricitinib have been started -continue dexamethasone and Lovenox -I spoke with the patient about the severity of his disease since he is at 15 L. He would like to be a full code -I called respiratory and they are going to come evaluate the patient to see if he would benefit from a non-rebreather. He may need Airvo or BiPAP if he continues to worsen. -will put the patient on continuous pulse ox so we can monitor him closely. I spoke with the RN about this -will obtain chest x-ray (2) Epilepsy: Qualifiers: Epilepsy type: unspecified Code(s): G40.909 - Epilepsy, unspecified, not intractable, without status epilepticus Status: Acute Assessment and Plan: -Continue with Topamax and phenobarbital. (3) New onset type 2 diabetes mellitus: Code(s): E11.9 - Type 2 diabetes mellitus without complications Status: Acute Assessment and Plan: A1c 6.5, consistent with DM and worsened with steroids. -will continue SSI -will need metformin at discharge and f/u with his pcp (4) Transaminitis: Code(s): R74.01 - Elevation of levels of liver transaminase levels Status: Acute Assessment and Plan: Likely due to COVID -Will check for hepatitis since starting baricitinib -monitor Time Spent With Patient Time with patient: 25 - 35 minutes Subjective Date/time seen: 03/31/21 16:54 Interval history: Pt is a 55-year-old male here for COVID. Patient was seen today and really has no complaints. He is asymptomatic with his hypoxia. RN states that he has been dipping low but the patient has not noticed it. He denies any feelings of shortness of breath. He has an annoying dry cough but that is about his only complaints. He is eating and drinking fine. No chest pain, nausea, vomiting, fevers, chills, headaches, or shortness of breath. He has not been up and moving very much. He has had diarrhea about once a day since his symptoms started. No history of blood clots Review of Systems Review of Systems: All systems reviewed & are unremarkable except as noted in HPI and below Exam Narrative: General: Well developed well nourished patient in NAD HEENT: normocephalic Neck: supple Neuro: Alert and oriented x4 CV:RRR Resp: Crackles bilaterally. Patient on 15 L of oxygen without conversational dyspnea, retractions or signs of air hunger Abd: Soft, non distended. No pain to palpation. Positive bowel sounds Extremities: No swelling, erythema, or pain to palpation. Objective Data Vital Signs Vital Signs: Vital Signs - 24 hr 03/30/21 20:00 03/30/21 20:24 03/31/21 00:00 Temperature 98.0 F 100.5 F H Pulse Rate 95 84 Respiratory Rate 18 18 Blood Pressure 145/72 H 107/52 L Pulse Oximetry 91 91 90 03/31/21 00:15 03/31/21 02:17 03/31/21 04:00 Temperature 100.3 F H Pulse Rate 84 Respiratory Rate 18 Blood Pressure 110/49 L Pulse Oximetry 90 91 92 03/31/21 04:59 03/31/21 08:00 03/31/21 08:15 Temperature 100.3 F H 98 F Pulse Rate 90 Respiratory Rate 20 Blood Pressure 118/59 L Pulse Oximetry 89 L 92 03/31/21 08:33 03/31/21 08:50 03/31/21 12:00 Temperature 98.4 F Pulse Rate 84 Respiratory Rate 20 Blood Pressure 119/62 Pulse Oximetry 92 92 86 L 03/31/21 12:37 03/31/21 13:05 03/31/21 16:30 Temperature Pulse Rate Respiratory Rate Blood Pressure Pulse Oximetry 86 L 92 86 L Intake/Output Intake/Output: Intake & Output 03/28/21 03/29/21 03/30/21 03/31/21 23:59 23:59 23:
[2021-03-31 17:55] LABS: SARS-CoV-2 RNA PCR Positive
[2021-03-31] MEDS: BARICITINIB 2 MG TABLET PO (18:10)
[2021-03-31 20:08] LABS: Hepatitis B Surface Antigen Negative (Negative)
[2021-03-31 20:14] LABS: HAV RESULT Negative (Negative); Hepatitis B Core IgM Result Negative (Negative)
[2021-03-31 20:18] LABS: Base Excess ABG 3.7 mEq/l (+/-2.0); Carboxyhemoglobin 0.3 % THb (0-2.0); Fractional Inspired Oxygen 100 %; HCO3 ABG 29.1 mEq/l (22.0-26.0); Methemoglobin ABG 0.3 %THb (0-1.5); Oxygen Content ABG 16.4 %vol (16.0-22.0); Oxygen Saturation ABG 93.3 % (95.0-100.0); Oxyhemoglobin 92.4 % THb (90.0-100.0); PO2 FiO2 Ratio Arterial Blood 0.67 %; Total Hemoglobin 12.6 g/dL (12.0-18.0); pH ABG 7.409 (7.350-7.450)
[2021-03-31 20:19] LABS: Modified Allen's Test Pass; Site Drawn LEFT RADIAL
[2021-03-31 20:20] LABS: Device OTHER DEVICE
[2021-03-31 20:26] LABS: Hepatitis C Virus Antibody Negative (Negative)
--- NOTE | 2021-03-31 20:48 | PM.EVENT ---
Event Note Event Note Event Note: I was called to patient's room for evaluation after patient was on 15 L plus non-rebreather supplemental oxygen and was noted to saturate in the 88% range upon arrival to the room patient is sitting comfortable no acute distress. Chest x-ray from earlier in the day shows diffuse pulmonary infiltrates compatible with COVID. Blood pressure was stable heart rate stable. Decision was made to transfer the patient to IMU for BiPAP therapy.
--- NOTE | 2021-03-31 21:31 | PC.NURSE ---
spoke to Arpita (significant other) and updated her on patient. She was very frustrated and distraught, kept asking to see him. I told her we are moving him to keep him stable and tried to explain the bipap machine etc. She asked to be kept in the loop better as he does not answer his phone...
--- NOTE | 2021-03-31 22:01 | PC.NURSE ---
spoke to Elida (daughter) to let her know of status change. She asked to be kept in the loop more closely and I let her know she can call for updates.
[2021-03-31] MEDS: MELATONIN 5 MG TABLET PO (22:54)
[2021-03-31] MEDS: PHENobarbital (*CRX) 60 MG TABLET 120 MG PO (22:54)
[2021-03-31] MEDS: TOPIRAMATE 25 MG TABLET 50 MG PO (22:54)
[2021-03-31] MEDS: guaiFENesin/CODEINE (*CRX) 200/20 MG 10 ML SYRUP PO (22:55)
[2021-03-31] MEDS: PHENobarbitaL (*CRX) 30 MG TABLET PO (22:55)
[2021-03-31 23:20] LABS: Glucose Point of Care 112 mg/dl (65-105)
[2021-04-01] VITALS (33 sets, daily range): BP systolic 92–108; BP diastolic 48–69; PULSE 56–88; RESP 19–26; TEMP 35.9–38.1; O2SAT 87–98; BMI 43.6
[2021-04-01 02:05] LABS: Add Urine Microscopic? YES; Appearance Urine Cloudy (Clear); Bacteria Urine Trace /hpf; Bilirubin Urine Negative (Negative); Blood Urine 1+ (Negative); Color Urine Yellow (Yellow); Glucose Urine UA Negative (Negative); Ketones Urine Negative (Negative); Leukocyte Esterase Ur Negative LEU/UL (Negative); Mucus Urine Rare /lpf; Nitrate Urine Negative (Negative); Protein Urine 1+ mg/dL (Negative); Urobilinogen Urine Negative mg/dL (<2.0)
[2021-04-01] MEDS: IPRATROPIUM BR 0.02% INH SOLN 0.5 MG/2.5 ML VIAL INHALATION ×4 (02:48→23:58)
[2021-04-01] MEDS: ALBUTEROL SULFATE NEB 2.5 MG/0.5 ML INH 5 MG INHALATION ×5 (02:48→23:58)
[2021-04-01] MEDS: FUROSEMIDE INJ 40 MG/4 ML VIAL IV PUSH (03:25)
[2021-04-01 05:34] LABS: Basophils Percent Auto 0.2 % (0.2-1.2); Hematocrit 34.6 % (42.0-52.0); Hemoglobin 11.4 g/dL (14.0-18.0); Immature Granulocyte Absolute 0.22 K/mm3 (0.00-0.031); Lymphocytes Absolute Auto 0.93 K/mm3 (0.9-3.2); Lymphocytes Percent Auto 8.6 % (18.3-44.2); Mean Corpuscular HGB Conc 32.9 g/dl (32-36); Mean Corpuscular Hemoglobin 29.5 pg (26-34); Mean Corpuscular Volume 89.4 fl (80-100); Mean Platelet Volume 9.8 fl (7.4-10.4); Monocytes Absolute Auto 0.3 K/mm3 (0.1-0.6); Monocytes Percent Auto 2.3 % (2.6-8.5); Neutrophils Absolute Auto 9.4 K/mm3 (1.3-6.7); Neutrophils Percent Auto 86.9 % (45.5-73.1); Platelet Count Result 331 k/mm3 (150-375); Red Blood Count 3.87 M/mm3 (4.6-6.20); Red Cell Distribution Width 13.9 % (11.5-14.5); White Blood Count 10.8 K/mm3 (4.5-10.0)
[2021-04-01 05:42] LABS: INR 1.1; Prothrombin Time 14.2 Seconds (11.1-14.7)
[2021-04-01 05:44] LABS: D Dimer 1.24 ug/mL (<0.48)
[2021-04-01 05:54] LABS: Alanine Aminotransferase 76 U/L (4-50); Albumin Level 3.9 g/dL (3.5-5.1); Alkaline Phosphatase 71 U/L (38-126); Anion Gap 8 mmol/L (8-16); Aspartate Amino Transferase 112 U/L (17-59); Bilirubin,Total 0.4 mg/dL (0.2-1.3); Blood Urea Nitrogen 23 mg/dL (9-20); Calcium 8.2 mg/dL (8.4-10.2); Carbon Dioxide 31 mmol/L (22-30); Chloride 96 mmol/L (98-107); Estimated CRCL calculation 68 ml/min; Estimated Glomerular Filt Rate 52; Glucose 115 mg/dL (65-110); Lactate Dehydrogenase 1816 U/L (313-618); Potassium 3.6 mmol/L (3.4-5.0); Sodium 135 mmol/L (137-145)
[2021-04-01 05:56] LABS: NT Pro B Type Natriuretic Pept 98 pg/mL (5-100)
[2021-04-01 06:03] LABS: CRP 22.3 mg/dL (<1.0)
--- NOTE | 2021-04-01 06:44 | PC.NURSE ---
This patient, Abdiel Britton, was received from [address] [place] [address] on 03/31/21 at 2150. Patient/family oriented to unit policies and routines
[2021-04-01] MEDS: BARICITINIB 2 MG TABLET PO (09:02)
[2021-04-01] MEDS: ENOXAPARIN 40 MG/0.4 ML SYRINGE SUB-Q (09:02)
--- NOTE | 2021-04-01 09:45 | PM.CNPUL ---
Assessment and Plan Assessment and plan (1) Pneumonia due to COVID-19 virus: Code(s): U07.1 - COVID-19; J12.82 - Pneumonia due to coronavirus disease 2019 Status: Acute Assessment and Plan: a 55-year-old man morbidly obese with acute hypoxemic respiratory failure related to COVID 19 pneumonia. Patient has extensive patchy infiltrates bilaterally primarily in the upper lobes and also in the lower lobes. He has been on the appropriate medication regimen for COVID-19 infection. His gas exchange has worsened over the last 24 hours and patient was placed on a BiPAP support 16/8 and 100% O2. His oxygen saturation remains borderline low at around 89%. chest x-ray also showed increase in the bilateral patchy infiltrates since admission. In view of morbid obesity, will increase EPAP to 10 and if no improvement in O2 sat to 12 cm water. If the patient's O2 saturation remains borderline will proceed with a intubation and transfer to the intensive care unit. Continue with the current regimen for COVID-19 pneumonia, a DVT prophylaxis and daily monitoring of D-dimer, CRP. I would suggest to increase IV fluids as patient's creatinine is elevated. (2) Hypoxia: Code(s): R09.02 - Hypoxemia Status: Acute (3) Obesity: Code(s): E66.9 - Obesity, unspecified Status: Acute (4) Epilepsy: Qualifiers: Epilepsy type: unspecified Code(s): G40.909 - Epilepsy, unspecified, not intractable, without status epilepticus Status: Acute (5) RAJIV on CPAP: Code(s): G47.33 - Obstructive sleep apnea (adult) (pediatric); Z99.89 - Dependence on other enabling machines and devices Status: Acute History of Present Illness History of Present Illness Consult date: 04/01/21 Chief complaint: COVID PUI, Pneumonia, Hypoxia Narrative: This 55-year-old man presented with one-week history of myalgias and progressively increasing shortness of breath. The patient has history of seizures and has been on medications. He was in his usual state of health until approximately 1 week ago when he felt feverish and also developed cough. Subsequently, he developed muscle aches diffusely, decreased appetite and progressively increasing shortness of breath. He had no chest pain or sputum production. On evaluation in the emergency room, he was found to have bilateral patchy infiltrates consistent with COVID 19 pneumonia. The patient was initially treated with high-flow oxygen and has been on remdesivir dexamethasone and baricitinib since admission to the hospital. Over the last day, his gas exchange has worsened and the patient was placed on BiPAP support 16/8 and 100% oxygen. Currently on those settings, his O2 saturation is 89%. He complains of cough, dry mouth but he has no shortness of breath while on BiPAP support. Review of Systems Constitutional: Constitutional: Reports as per HPI Eyes: Eyes: Reports as per HPI ENT: Reports as per HPI Cardiovascular: Cardiovascular: Reports as per HPI and Reports no additional cardiovascular complaints Respiratory: Respiratory: Reports as per HPI and Reports no additional respiratory complaints Gastrointestinal: Gastrointestinal: Reports as per HPI and Reports no additional gastrointestinal complaints Genitourinary: Genitourinary: Reports no additional male genitourinary complaints and Reports as per HPI Musculoskeletal: Musculoskeletal: Reports no additional musculoskeletal complaints and Reports as per HPI Neurologic: Reports system reviewed and no additional complaints, except as documented and Reports as per HPI [facility] Past Medical History Medical History (Updated 04/01/21 @ 14:01 by Bentley Wan MD) Abnormal CT of the abdomen Bloating Dyspnea on exertion Epilepsy History of kidney stones Inguinal hernia bilateral, non-recurrent Leg edema Weight gain Surgical History Surgical History (Updated 03/28/21 @ 21:34 by Niecy Herrno NP) H/O
[2021-04-01] MEDS: SODIUM CHLORIDE 0.9% IV 250 ML 100 ML IV CONT (10:58)
[2021-04-01] MEDS: REMDESIVIR 100 MG/NS 250 ML 100 MG/250 ML BAG 250 MG IVPB (10:58)
[2021-04-01 11:01] LABS: Glucose Point of Care 92 mg/dl (65-105)
--- NOTE | 2021-04-01 12:09 | PM.IMPN ---
Progress Note: A&P Assessment and Plan (1) Pneumonia due to COVID-19 virus: Code(s): U07.1 - COVID-19; J12.82 - Pneumonia due to coronavirus disease 2019 Status: Acute Assessment and Plan: Patient continues to require more more oxygen and is now only 85% with BiPAP -spoke with about the case who recommended intubation. -I spoke with the patient and the nicArpita about the prognosis and the patient has agreed to be intubated - bilateral infiltrates on his CTA on admission and worsening pneumonia noted on x-ray -we have been awaiting the PCR for multiple days so a rapid test was done and is positive -continue Remdesivir, dexamethasone, Lovenox and baricitinib (2) Epilepsy: Qualifiers: Epilepsy type: unspecified Code(s): G40.909 - Epilepsy, unspecified, not intractable, without status epilepticus Status: Acute Assessment and Plan: -Continue with Topamax and phenobarbital. (3) New onset type 2 diabetes mellitus: Code(s): E11.9 - Type 2 diabetes mellitus without complications Status: Acute Assessment and Plan: A1c 6.5, consistent with DM and worsened with steroids. -will continue SSI -will need metformin at discharge and f/u with his pcp (4) Transaminitis: Code(s): R74.01 - Elevation of levels of liver transaminase levels Status: Acute Assessment and Plan: Likely due to COVID -hepatitis negative -monitor (5) Acute respiratory failure with hypoxia: Code(s): J96.01 - Acute respiratory failure with hypoxia Status: Acute Assessment and Plan: As above, plan for intubation Subjective Date/time seen: 04/01/21 12:09 Interval history: Pt is a 55-year-old male here for COVID. Patient was seen today with the ICU doctor. He says he feels fine and initially did not want to be intubated. We had a long discussion about what will happen if he does not get his oxygen up. After face timing with his nicArpita, he has agreed to intubation. He does not really feel short of breath. He has no chest pain, nausea, vomiting, fevers or chills. He does not feel great but wants to go home. Exam Narrative: General: Well developed well nourished patient in NAD on BiPAP HEENT: normocephalic Neck: supple Neuro: Alert and oriented x4 CV:RRR Resp: Crackles bilaterally. BiPAP in place. He dropped down to 84% with any conversation Abd: Soft, non distended. No pain to palpation. Positive bowel sounds Extremities: No swelling, erythema, or pain to palpation. Objective Data Vital Signs Vital Signs: Vital Signs - 24 hr 03/31/21 12:37 03/31/21 13:05 03/31/21 16:00 Temperature 98.2 F Pulse Rate 82 Respiratory Rate 22 H Blood Pressure 121/70 Pulse Oximetry 86 L 92 86 L 03/31/21 16:30 03/31/21 17:19 03/31/21 20:00 Temperature Pulse Rate 83 Respiratory Rate 26 H Blood Pressure 119/75 Pulse Oximetry 86 L 94 91 03/31/21 20:35 03/31/21 20:45 03/31/21 21:45 Temperature 97.9 F Pulse Rate 80 Respiratory Rate 26 H 26 H 25 H Blood Pressure 105/72 Pulse Oximetry 85 L 91 95 03/31/21 22:00 03/31/21 22:30 03/31/21 23:20 Temperature 97.8 F Pulse Rate 83 83 80 Respiratory Rate 25 H 20 Blood Pressure 110/69 Pulse Oximetry 91 93 04/01/21 00:00 04/01/21 00:31 04/01/21 00:32 Temperature Pulse Rate 77 77 Respiratory Rate 25 H Blood Pressure Pulse Oximetry 95 95 04/01/21 02:00 04/01/21 02:50 04/01/21 02:58 Temperature Pulse Rate 82 81 83 Respiratory Rate 20 22 H Blood Pressure Pulse Oximetry 91 04/01/21 03:00 04/01/21 03:32 04/01/21 04:00 Temperature 98.8 F Pulse Rate 83 85 79 Respiratory Rate 22 H 20 Blood Pressure 108/68 Pulse Oximetry 95 04/01/21 06:00 04/01/21 08:00 04/01/21 08:16 Temperature 98 F Pulse Rate 86 84 82 Respiratory Rate 25 H 19 Blood Pressure 104/48 L Pulse Ox
--- NOTE | 2021-04-01 13:33 | WPDCNINT ---
Assessment and Plan Assessment and plan (1) Acute respiratory failure with hypoxia: Code(s): J96.01 - Acute respiratory failure with hypoxia Status: Acute Assessment and Plan: Patient presented to the hospital liver 03/28/2021 with SOB, decreased smell and taste, cough, decreased appetite. 04/01 Pt was on BiPAP, 100% FiO2, hypoxia with O2 sats in the early and mid 80s. - Patient was brought to the ICU intubated -on 04/01 - currently on CMV mode of ventilation peep of 16, 100% FiO2. -will prone patient, -will obtain post intubation ABGs, adjust ventilator once ABGs are resulted -chest x-ray post intubation shows stable diffuse lung disease consistent with COVID 19 pneumonia. ET tube in place -continue bronchodilators will add Pulmicort -sedated with fentanyl Versed infusion, currently synchronous with the ventilator (2) Pneumonia due to COVID-19 virus: Code(s): U07.1 - COVID-19; J12.82 - Pneumonia due to coronavirus disease 2018 Status: Acute Assessment and Plan: SARS-CoV-2 positive on 03/28/2021, unvaccinated -continue dexamethasone, remdesivir, baricitinib -inflammatory markers are elevated, will continue to trend -continue droplet, airborne, contact isolation/precautions (3) New onset type 2 diabetes mellitus: Code(s): E11.9 - Type 2 diabetes mellitus without complications Status: Acute Assessment and Plan: New onset diabetes mellitus -continue sliding scale insulin (4) Transaminitis: Code(s): R74.01 - Elevation of levels of liver transaminase levels Status: Acute Assessment and Plan: Likely related to hypoxia due to COVID pneumonia (5) Epilepsy: Qualifiers: Epilepsy type: unspecified Code(s): G40.909 - Epilepsy, unspecified, not intractable, without status epilepticus Status: Acute Assessment and Plan: History of epilepsy, continue phenobarbital (6) DVT prophylaxis: Code(s): Z29.9 - Encounter for prophylactic measures, unspecified Status: Acute Assessment and Plan: Continue enoxaparin (7) Dietary counseling and surveillance: Code(s): Z71.3 - Dietary counseling and surveillance Status: Acute Assessment and Plan: Will start tube feeds in a.m. Additional Plan Discussed with jeremías Palm and updated with patient's condition and plan of care. I answered all questions. She stated was that the right choice that she made to convince him to get on the breathing machine and I did tell her yes it was the right choice. She also stated that none of them received the COVID-19 vaccine. Code status: Full code Critical care time spent: 45 minutes This dictation may have been done utilizing a voice recognition system. Attempts have been made to correct errors. However, there may be uncorrected grammatical, spelling, and recognition errors present. Due to a high probability of clinically significant, life threatening deterioration, the patient required my highest level of preparedness to intervene emergently and I personally spent this critical care time directly and personally managing the patient. This critical care time included obtaining a history; examining the patient; pulse oximetry; ordering and review of studies; arranging urgent treatment with development of a management plan; evaluation of patient's response to treatment; frequent reassessment; and discussions with other providers. It was exclusive of separately billable procedures and treating other patients and teaching time. Please see Assessment and Plan section and the rest of the note for further information on patient assessment and treatment Process Excellence Manager Consult Note Consult date: 04/01/21 Time Seen: 11:42 Reason for consult: Acute hypoxic respiratory failure, COVID-19 pneumonia HPI: Abdiel Britton is a 55 year old male with past medical history of diabetes, epilepsy, history of kidney stone, obesity presented t
--- NOTE | 2021-04-01 14:09 | PC.NURSE ---
1215-PATIENT WAS BROUGHT OVER BY BED TO ICU [address] OSORIO.
[2021-04-01] MEDS: FENTANYL 2,500MCG/NS250ML(*CRX 2,500 MCG/250 ML BAG 15 MCG IV CONT (14:11)
[2021-04-01] MEDS: MIDAZOLAM 100MG/NS 100ML(*CRX) 100 MG/100 ML BAG IV CONT (14:12)
--- NOTE | 2021-04-01 14:25 | WPDPROCEDUR ---
Procedures Intubation Intubation Date: 04/01/21 Intubation Time: 12:45 A pre-procedural Time-Out was completed immediately before starting the procedure and confirmed: Patient Identification, Site, Procedure, Patient Position and the Availability of Requisite Equipment: Yes Sedative: etomidate Paralytic: rocuronium Laryngoscope: fiber optic video scope Assist device used: fiber optic device ET tube size: 8 Tube secured depth (cm): 24 Tube secured location: lips Tube placement confirmation: visualized tube passing through cords, equal breath sounds bilaterally, no breath sounds over epigastrium and confirmation by capnometry Patient tolerated procedure: well Intubation complications: none
--- NOTE | 2021-04-01 15:16 | PCDIET ---
Tube Feeding Recommendations: Recommend Jevity 1.2 with a goal rate of 70 mls per hour over 22 hours per day. This will provide pt. with 1848 calories, 85 grams of protein and 1242 mls of water. Recommend starting at a rate of 20 mls per hour and advancing by 10 mls every hour as tolerated. Recommend 80 ml water flushes q4.
[2021-04-01 15:21] LABS: Alveolar/Arterial O2 Gradient 561.5 mmHg; Base Excess ABG 4.3 mEq/l (+/-2.0); Carboxyhemoglobin 0.3 % THb (0-2.0); Fractional Inspired Oxygen 100 %; HCO3 ABG 30.3 mEq/l (22.0-26.0); Methemoglobin ABG 0.2 %THb (0-1.5); Oxygen Saturation ABG 97.4 % (95.0-100.0); Oxyhemoglobin 96.2 % THb (90.0-100.0); PCO2 ABG 51.4 mmHg (35.0-45.0); PO2 ABG 100.1 mmHg (80.0-100.0); Reduced Hemoglobin 3.3 %THb (0-5.0); Total Hemoglobin 11.7 g/dL (12.0-18.0); pH ABG 7.388 (7.350-7.450)
[2021-04-01 15:25] LABS: Site Drawn RIGHT BRACHIAL
[2021-04-01 15:27] LABS: Device VENTILATOR
[2021-04-01 15:28] LABS: Arterial Blood Gas PEEP 16 cmH2O; Arterial Blood Gas Pressure Support 0 cmH2O; Arterial Blood Gas Tidal Volume 450 ml; Arterial Blood Gas Vent Mode CMV; Arterial Blood Gas Ventilator rate 26 /MIN; Peak Inspiratory Pressure 0 cmH2O
[2021-04-01 18:27] LABS: Glucose Point of Care 155 mg/dl (65-105)
[2021-04-01] MEDS: BUDESONIDE RESPULE NEB 0.5 MG/2 ML AMP INHALATION (20:18)
[2021-04-01] MEDS: TOPIRAMATE 25 MG TABLET 50 MG PO (21:59)
[2021-04-01] MEDS: PHENobarbitaL (*CRX) 30 MG TABLET PO (22:00)
[2021-04-01] MEDS: MINERAL OIL/WHITE PETROLATUM OINTMENT 1 APPLIC EACH EYE (22:00)
[2021-04-01] MEDS: PHENobarbital (*CRX) 60 MG TABLET 120 MG PO (22:00)
[2021-04-01 23:53] LABS: Glucose Point of Care 146 mg/dl (65-105)
[2021-04-02] VITALS (34 sets, daily range): BP systolic 91–112; BP diastolic 52–66; PULSE 51–70; RESP 26–28; TEMP 36.1–36.3; O2SAT 87–97
[2021-04-02] MEDS: ALBUTEROL SULFATE NEB 2.5 MG/0.5 ML INH 5 MG INHALATION ×4 (03:10→20:20)
[2021-04-02] MEDS: IPRATROPIUM BR 0.02% INH SOLN 0.5 MG/2.5 ML VIAL INHALATION ×4 (03:10→20:20)
[2021-04-02 04:40] LABS: Alveolar/Arterial O2 Gradient 581.2 mmHg; Base Excess ABG 4.9 mEq/l (+/-2.0); Carboxyhemoglobin 0.3 % THb (0-2.0); Fractional Inspired Oxygen 100 %; HCO3 ABG 33.1 mEq/l (22.0-26.0); Methemoglobin ABG 0.2 %THb (0-1.5); Oxygen Content ABG 18.2 %vol (16.0-22.0); Oxygen Saturation ABG 91.3 % (95.0-100.0); Oxyhemoglobin 90.5 % THb (90.0-100.0); PO2 ABG 66.9 mmHg (80.0-100.0); PO2 FiO2 Ratio Arterial Blood 0.67 %; Total Hemoglobin 14.3 g/dL (12.0-18.0); pH ABG 7.325 (7.350-7.450)
[2021-04-02 04:43] LABS: Arterial Blood Gas PEEP 14 cmH2O; Arterial Blood Gas Vent Mode CMV; Arterial Blood Gas Ventilator rate 26 /MIN; Device VENTILATOR; Modified Allen's Test Pass; PCO2 ABG 64.9 mmHg (35.0-45.0); Site Drawn RIGHT RADIAL
[2021-04-02 04:44] LABS: Arterial Blood Gas Tidal Volume 400 ml
[2021-04-02 05:19] LABS: Prothrombin Time 13.3 Seconds (11.1-14.7)
[2021-04-02 05:20] LABS: Alanine Aminotransferase 66 U/L (4-50); Albumin Level 3.2 g/dL (3.5-5.1); Alkaline Phosphatase 59 U/L (38-126); Anion Gap 7 mmol/L (8-16); Aspartate Amino Transferase 77 U/L (17-59); Bilirubin,Total 0.3 mg/dL (0.2-1.3); Blood Urea Nitrogen 38 mg/dL (9-20); Calcium 7.8 mg/dL (8.4-10.2); Carbon Dioxide 33 mmol/L (22-30); Chloride 95 mmol/L (98-107); Estimated CRCL calculation 72 ml/min; Estimated Glomerular Filt Rate 57; Glucose 144 mg/dL (65-110); Magnesium 2.9 mg/dL (1.6-2.3); Potassium 4.4 mmol/L (3.4-5.0); Sodium 135 mmol/L (137-145)
[2021-04-02] MEDS: FENTANYL 2,500MCG/NS250ML(*CRX 2,500 MCG/250 ML BAG 15 MCG IV CONT ×2 (05:26→21:52)
[2021-04-02 06:03] LABS: Basophils Percent Auto 0.3 % (0.2-1.2); Hematocrit 33.4 % (42.0-52.0); Hemoglobin 10.8 g/dL (14.0-18.0); Immature Granulocyte Absolute 0.24 K/mm3 (0.00-0.031); Immature Granulocyte Percent A 2.7 % (0-0.5); Lymphocytes Absolute Auto 0.81 K/mm3 (0.9-3.2); Mean Corpuscular HGB Conc 32.3 g/dl (32-36); Mean Corpuscular Hemoglobin 29.6 pg (26-34); Mean Corpuscular Volume 91.5 fl (80-100); Mean Platelet Volume 9.9 fl (7.4-10.4); Monocytes Absolute Auto 0.3 K/mm3 (0.1-0.6); Monocytes Percent Auto 3.2 % (2.6-8.5); Neutrophils Absolute Auto 7.7 K/mm3 (1.3-6.7); Neutrophils Percent Auto 84.8 % (45.5-73.1); Platelet Count Result 360 k/mm3 (150-375); Red Blood Count 3.65 M/mm3 (4.6-6.20); Red Cell Distribution Width 14.1 % (11.5-14.5); White Blood Count 9.1 K/mm3 (4.5-10.0)
[2021-04-02] MEDS: MIDAZOLAM 100MG/NS 100ML(*CRX) 100 MG/100 ML BAG IV CONT (07:14)
[2021-04-02] MEDS: BUDESONIDE RESPULE NEB 0.5 MG/2 ML AMP INHALATION ×2 (09:32→20:19)
[2021-04-02] MEDS: MINERAL OIL/WHITE PETROLATUM OINTMENT 1 APPLIC EACH EYE ×2 (09:35→21:42)
[2021-04-02] MEDS: ENOXAPARIN 40 MG/0.4 ML SYRINGE SUB-Q (09:35)
[2021-04-02] MEDS: BARICITINIB 2 MG TABLET PO (09:36)
--- NOTE | 2021-04-02 11:19 | WPDINTPN ---
Progress Note: A&P Assessment and Plan (1) Acute respiratory failure with hypoxia: Code(s): J96.01 - Acute respiratory failure with hypoxia Status: Acute Assessment and Plan: Patient presented to the hospital liver 03/28/2021 with SOB, decreased smell and taste, cough, decreased appetite. 04/01 Pt was on BiPAP, 100% FiO2, hypoxia with O2 sats in the early and mid 80s. - Patient was brought to the ICU intubated -on 04/01 - currently on CMV mode of ventilation peep of 16, 100% FiO2. -will prone patient for 16-18 hrs daily -ABGs and CXR reviewed -continue bronchodilators and Pulmicort -sedated with fentanyl Versed infusion, currently synchronous with the ventilator (2) Pneumonia due to COVID-19 virus: Code(s): U07.1 - COVID-19; J12.82 - Pneumonia due to coronavirus disease 2019 Status: Acute Assessment and Plan: SARS-CoV-2 positive on 03/28/2021, unvaccinated -continue dexamethasone, remdesivir, baricitinib -inflammatory markers are elevated, will continue to trend -continue droplet, airborne, contact isolation/precautions (3) New onset type 2 diabetes mellitus: Code(s): E11.9 - Type 2 diabetes mellitus without complications Status: Acute Assessment and Plan: New onset diabetes mellitus -continue sliding scale insulin (4) Transaminitis: Code(s): R74.01 - Elevation of levels of liver transaminase levels Status: Acute Assessment and Plan: Likely related to hypoxia due to COVID pneumonia (5) Epilepsy: Qualifiers: Epilepsy type: unspecified Code(s): G40.909 - Epilepsy, unspecified, not intractable, without status epilepticus Status: Acute Assessment and Plan: History of epilepsy, continue phenobarbital (6) DVT prophylaxis: Code(s): Z29.9 - Encounter for prophylactic measures, unspecified Status: Acute Assessment and Plan: Continue enoxaparin (7) Dietary counseling and surveillance: Code(s): Z71.3 - Dietary counseling and surveillance Status: Acute Assessment and Plan: Will start tube feeds Additional Plan Discussed with Arpita patient'alecia lucero and updated with patient's condition and plan of care. I answered all questions. Code status: Full code Critical care time spent: 33 minutes This dictation may have been done utilizing a voice recognition system. Attempts have been made to correct errors. However, there may be uncorrected grammatical, spelling, and recognition errors present. Due to a high probability of clinically significant, life threatening deterioration, the patient required my highest level of preparedness to intervene emergently and I personally spent this critical care time directly and personally managing the patient. This critical care time included obtaining a history; examining the patient; pulse oximetry; ordering and review of studies; arranging urgent treatment with development of a management plan; evaluation of patient's response to treatment; frequent reassessment; and discussions with other providers. It was exclusive of separately billable procedures and treating other patients and teaching time. Please see Assessment and Plan section and the rest of the note for further information on patient assessment and treatment Subjective Date/time seen: 04/02/21 11:19 Interval history: Reason for consult: Acute hypoxic respiratory failure, COVID-19 pneumonia, has not received COVID vaccine, Intubated on 04/01/2021 04/02/2021: Patient seen and examined, remains intubated on CMV mode of ventilation, 100% FiO2, peep of 14. For sedated with fentanyl and Versed infusion, patient is synchronous with the ventilator. With adequate oxygenation and ventilation. Urine output has been adequate, afebrile, hemodynamically stable. Patient does not open his eyes or follow simple commands Review of Systems Review of Systems: ROS unobtainable: Yes unobtainable due to
[2021-04-02] MEDS: REMDESIVIR 100 MG/NS 250 ML 100 MG/250 ML BAG 250 MG IVPB (11:21)
--- NOTE | 2021-04-02 12:47 | PM.IMPN ---
Progress Note: A&P Assessment and Plan (1) Acute respiratory failure with hypoxia: Code(s): J96.01 - Acute respiratory failure with hypoxia Status: Acute Assessment and Plan: Now on a ventilator satting 93% of 100% FIO2 04/01 Pt was on BiPAP, 100% FiO2, hypoxia with O2 sats in the mid 80s and was intubated -plan to prone later today -CXR showing extensive but stable disease this morning -sedated with fentanyl Versed infusion, currently synchronous with the ventilator (2) Pneumonia due to COVID-19 virus: Code(s): U07.1 - COVID-19; J12.82 - Pneumonia due to coronavirus disease 2018 Status: Acute Assessment and Plan: SARS-CoV-2 positive on 03/28/2021, unvaccinated -continue dexamethasone, remdesivir, and baricitinib -continue isolation - bilateral infiltrates on his CTA on admission and worsening pneumonia noted on x-ray (3) New onset type 2 diabetes mellitus: Code(s): E11.9 - Type 2 diabetes mellitus without complications Status: Acute Assessment and Plan: Last glucose 144 -New onset diabetes mellitus -continue sliding scale insulin -would recommend metformin at discharge (4) Transaminitis: Code(s): R74.01 - Elevation of levels of liver transaminase levels Status: Acute Assessment and Plan: Improving -Likely related to COVID (5) Epilepsy: Qualifiers: Epilepsy type: unspecified Code(s): G40.909 - Epilepsy, unspecified, not intractable, without status epilepticus Status: Acute Assessment and Plan: History of epilepsy - continue phenobarbital and topamax (6) DVT prophylaxis: Code(s): Z29.9 - Encounter for prophylactic measures, unspecified Status: Acute Assessment and Plan: Continue enoxaparin (7) Dietary counseling and surveillance: Code(s): Z71.3 - Dietary counseling and surveillance Status: Acute Assessment and Plan: Plan to start tube feedings soon Subjective Date/time seen: 04/02/21 12:47 Interval history: Pt is a 55-year-old male here for COVID. Patient was seen today while sedated. RN states he desats when they turn him. No events overnight. Exam Narrative: General: intubated and sedated in no acute distress Cardiac: Bradycardic. Tele shows sinus bradycardia rate 50 Lungs: Coarse breath sounds bilaterally but fairly clear Abdomen: Soft: Nontender, nondistended, + BS Extremities: Warm, pedal pulses are palpable, no edema : Pereira catheter in place, draining clear yellow urine Skin: Warm and dry Neuro: Patient intubated, sedated, pupils are equal and reactive Objective Data Vital Signs Vital Signs: Vital Signs - 24 hr 04/01/21 14:00 04/01/21 14:11 04/01/21 14:12 Temperature Pulse Rate 64 88 88 Respiratory Rate 21 H 21 H Blood Pressure Pulse Oximetry 04/01/21 15:15 04/01/21 16:00 04/01/21 16:09 Temperature 99 F Pulse Rate 62 63 Respiratory Rate 26 H Blood Pressure 92/59 L Pulse Oximetry 90 97 98 04/01/21 18:00 04/01/21 20:00 04/01/21 20:20 Temperature 97.0 F L Pulse Rate 61 59 L 56 L Respiratory Rate 26 H Blood Pressure 94/53 L Pulse Oximetry 96 96 04/01/21 20:22 04/01/21 20:42 04/01/21 22:00 Temperature Pulse Rate 56 L 59 L 59 L Respiratory Rate 26 H 26 H 26 H Blood Pressure 95/53 L Pulse Oximetry 96 04/01/21 22:01 04/01/21 22:02 04/01/21 23:50 Temperature 96.6 F L Pulse Rate 59 L 59 L 57 L Respiratory Rate 26 H 26 H Blood Pressure Pulse Oximetry 95 04/01/21 23:55 04/02/21 00:00 04/02/21 00:05 Temperature Pulse Rate 57 L 55 L 56 L Respiratory Rate 26 H 26 H 26 H Blood Pressure 92/52 L Pulse Oximetry 95 04/02/21 02:00 04/02/21 03:11 04/02/21 03:12 Temperature Pulse Rate 55 L 55 L 55 L Respiratory Rate 26 H 26 H Blood Pressure 91/52 L Pulse Oximetry 96 94 04/02/21 03:23 04/02/21 04:00
[2021-04-02 12:57] LABS: Glucose Point of Care 130 mg/dl (65-105)
[2021-04-02] MEDS: ROCURONIUM BROMIDE 50 MG/5 ML VIAL IV PUSH (14:19)
[2021-04-02 18:21] LABS: Glucose Point of Care 141 mg/dl (65-105)
[2021-04-02] MEDS: MELATONIN 5 MG TABLET PO (21:41)
[2021-04-02] MEDS: TOPIRAMATE 25 MG TABLET 50 MG PO (21:42)
[2021-04-02] MEDS: PHENobarbital (*CRX) 60 MG TABLET 120 MG PO (21:49)
[2021-04-02] MEDS: PHENobarbitaL (*CRX) 30 MG TABLET PO (21:51)
[2021-04-03] VITALS (35 sets, daily range): BP systolic 93–127; BP diastolic 58–76; PULSE 52–80; RESP 28; TEMP 36.3–36.9; O2SAT 70–98
[2021-04-03] MEDS: INSULIN ASPART (*BKC) 100 UNITS/ML SUB-Q ×2 (01:12→18:34)
[2021-04-03] MEDS: IPRATROPIUM BR 0.02% INH SOLN 0.5 MG/2.5 ML VIAL INHALATION ×5 (02:37→21:22)
[2021-04-03] MEDS: ALBUTEROL SULFATE NEB 2.5 MG/0.5 ML INH 5 MG INHALATION ×5 (02:37→21:22)
[2021-04-03] MEDS: MIDAZOLAM 100MG/NS 100ML(*CRX) 100 MG/100 ML BAG IV CONT ×2 (04:18→22:27)
[2021-04-03 04:25] LABS: Glucose Point of Care 204 mg/dl (65-105)
[2021-04-03 05:58] LABS: PCO2 ABG 41.9 mmHg (35.0-45.0); PO2 ABG 77.4 mmHg (80.0-100.0)
[2021-04-03 05:59] LABS: Alveolar/Arterial O2 Gradient 376.7 mmHg; Base Excess ABG 5.6 mEq/l (+/-2.0); Carboxyhemoglobin 0.3 % THb (0-2.0); HCO3 ABG 29.8 mEq/l (22.0-26.0); Methemoglobin ABG 0.1 %THb (0-1.5); Oxygen Content ABG 15.3 %vol (16.0-22.0); Oxygen Saturation ABG 96.1 % (95.0-100.0); Oxyhemoglobin 94.3 % THb (90.0-100.0); Reduced Hemoglobin 5.3 %THb (0-5.0); Total Hemoglobin 11.5 g/dL (12.0-18.0)
[2021-04-03 06:00] LABS: Arterial Blood Gas PEEP 14 cmH2O; Arterial Blood Gas Vent Mode CMV; Arterial Blood Gas Ventilator rate 28 /MIN; Device VENTILATOR; Fractional Inspired Oxygen 70 %; Modified Allen's Test Pass; PO2 FiO2 Ratio Arterial Blood 1.11 %; Site Drawn RIGHT RADIAL
[2021-04-03 06:01] LABS: Arterial Blood Gas Tidal Volume 400 ml
[2021-04-03 06:50] LABS: Glucose Point of Care 157 mg/dl (65-105)
[2021-04-03] MEDS: BUDESONIDE RESPULE NEB 0.5 MG/2 ML AMP INHALATION ×2 (07:56→21:22)
--- NOTE | 2021-04-03 08:59 | WPDINTPN ---
Progress Note: A&P Assessment and Plan (1) Acute respiratory failure with hypoxia: Code(s): J96.01 - Acute respiratory failure with hypoxia Status: Acute Assessment and Plan: Patient presented to the hospital on 03/28/2021 with SOB, decreased smell and taste, cough, decreased appetite. 04/01 Pt was on BiPAP, 100% FiO2, hypoxia with O2 sats in the early and mid 80s. - Patient was brought to the ICU intubated -on 04/01 - currently on CMV mode of ventilation peep of 14, 70% FiO2. -will prone patient for 16 hrs daily -ABGs and CXR reviewed -continue bronchodilators and Pulmicort -sedated with fentanyl Versed infusion, currently synchronous with the ventilator (2) Pneumonia due to COVID-19 virus: Code(s): U07.1 - COVID-19; J12.82 - Pneumonia due to coronavirus disease 2019 Status: Acute Assessment and Plan: SARS-CoV-2 positive on 03/28/2021, unvaccinated -continue dexamethasone, remdesivir, baricitinib -inflammatory markers are elevated, will continue to trend -continue droplet, airborne, contact isolation/precautions (3) New onset type 2 diabetes mellitus: Code(s): E11.9 - Type 2 diabetes mellitus without complications Status: Acute Assessment and Plan: New onset diabetes mellitus -continue sliding scale insulin (4) Transaminitis: Code(s): R74.01 - Elevation of levels of liver transaminase levels Status: Acute Assessment and Plan: Likely related to hypoxia due to COVID pneumonia -LFTs improved (5) Epilepsy: Qualifiers: Epilepsy type: unspecified Code(s): G40.909 - Epilepsy, unspecified, not intractable, without status epilepticus Status: Acute Assessment and Plan: History of epilepsy, continue phenobarbital (6) DVT prophylaxis: Code(s): Z29.9 - Encounter for prophylactic measures, unspecified Status: Acute Assessment and Plan: Continue enoxaparin (7) Dietary counseling and surveillance: Code(s): Z71.3 - Dietary counseling and surveillance Status: Acute Assessment and Plan: Tolerating tube feeds Additional Plan Discussed with Arpita patient'alecia lucero and updated with patient's condition and plan of care. I answered all questions. Code status: Full code Critical care time spent: 32 minutes This dictation may have been done utilizing a voice recognition system. Attempts have been made to correct errors. However, there may be uncorrected grammatical, spelling, and recognition errors present. Due to a high probability of clinically significant, life threatening deterioration, the patient required my highest level of preparedness to intervene emergently and I personally spent this critical care time directly and personally managing the patient. This critical care time included obtaining a history; examining the patient; pulse oximetry; ordering and review of studies; arranging urgent treatment with development of a management plan; evaluation of patient's response to treatment; frequent reassessment; and discussions with other providers. It was exclusive of separately billable procedures and treating other patients and teaching time. Please see Assessment and Plan section and the rest of the note for further information on patient assessment and treatment Subjective Date/time seen: 04/03/21 08:59 Interval history: Reason for consult: Acute hypoxic respiratory failure, COVID-19 pneumonia, has not received COVID vaccine, Intubated on 04/01/2021 04/03/2021: Patient remains intubated on CMV mode of ventilation, 70% FiO2, 14 of PEEP. Patient is in prone position. Sedated with fentanyl and Versed infusion. Urine output has been adequate, patient is afebrile, hemodynamically stable. Tolerating tube feeds. Chest x-ray this morning shows slight improved Review of Systems Review of Systems: ROS unobtainable: Yes unobtainable due to endotracheal tube Exam Narrative: General:
[2021-04-03] MEDS: BARICITINIB 2 MG TABLET PO (09:37)
[2021-04-03] MEDS: ENOXAPARIN 40 MG/0.4 ML SYRINGE SUB-Q (09:38)
[2021-04-03] MEDS: MINERAL OIL/WHITE PETROLATUM OINTMENT 1 APPLIC EACH EYE ×2 (09:38→20:18)
[2021-04-03 12:08] LABS: Hematocrit 36.6 % (42.0-52.0); Hemoglobin 11.8 g/dL (14.0-18.0); Mean Corpuscular HGB Conc 32.2 g/dl (32-36); Mean Corpuscular Hemoglobin 29.9 pg (26-34); Mean Corpuscular Volume 92.9 fl (80-100); Mean Platelet Volume 10.3 fl (7.4-10.4); Platelet Count Result 413 k/mm3 (150-375); Red Blood Count 3.94 M/mm3 (4.6-6.20); Red Cell Distribution Width 14.2 % (11.5-14.5); White Blood Count 11.9 K/mm3 (4.5-10.0)
[2021-04-03 12:22] LABS: INR 1.1; Prothrombin Time 14.3 Seconds (11.1-14.7)
[2021-04-03 12:26] LABS: Glucose Point of Care 183 mg/dl (65-105)
[2021-04-03 12:31] LABS: Band Neutrophils Percent 1 % (0-6); Eosinophils Absolute Manual 0.11 K/mm3 (0.02-0.5); Eosinophils Percent Manual 1 % (0-4); Lymphocytes Absolute Manual 1.07 K/mm3 (1.1-4.5); Monocytes Absolute Manual 0.35 K/mm3 (0.1-0.90); Monocytes Percent Manual 3 % (3-9); Neutrophils Absolute Manual 10.35 K/mm3 (1.3-6.7); Neutrophils Percent Manual 86 % (46-73); Total Cells Counted 100
[2021-04-03 12:34] LABS: Platelet Estimate Adequate (Adequate)
[2021-04-03 13:18] LABS: Alanine Aminotransferase 50 U/L (4-50); Albumin Level 3.4 g/dL (3.5-5.1); Alkaline Phosphatase 69 U/L (38-126); Anion Gap 3 mmol/L (8-16); Aspartate Amino Transferase 55 U/L (17-59); Bilirubin,Total 0.3 mg/dL (0.2-1.3); Blood Urea Nitrogen 45 mg/dL (9-20); Carbon Dioxide 34 mmol/L (22-30); Chloride 100 mmol/L (98-107); Estimated CRCL calculation 68 ml/min; Estimated Glomerular Filt Rate 52; Glucose 217 mg/dL (65-110); Magnesium 3.1 mg/dL (1.6-2.3); Phosphorus 2.6 mg/dL (2.5-4.5); Potassium 3.5 mmol/L (3.4-5.0); Sodium 137 mmol/L (137-145)
[2021-04-03] MEDS: REMDESIVIR 100 MG/NS 250 ML 100 MG/250 ML BAG 250 MG IVPB (13:49)
[2021-04-03] MEDS: CENTRAL LINE FLUSH 10 ML IV PUSH ×2 (13:50→20:18)
[2021-04-03] MEDS: FENTANYL 2,500MCG/NS250ML(*CRX 2,500 MCG/250 ML BAG 15 MCG IV CONT (15:02)
[2021-04-03] MEDS: PHENobarbital (*CRX) 60 MG TABLET 120 MG PO (20:17)
[2021-04-03] MEDS: TOPIRAMATE 25 MG TABLET 50 MG PO (20:18)
[2021-04-03] MEDS: PHENobarbitaL (*CRX) 30 MG TABLET PO (20:18)
[2021-04-03 21:23] LABS: Glucose Point of Care 248 mg/dl (65-105)
[2021-04-04] VITALS (36 sets, daily range): BP systolic 101–135; BP diastolic 64–87; PULSE 59–107; RESP 22–29; TEMP 36.6–37.3; O2SAT 91–98
[2021-04-04] MEDS: IPRATROPIUM BR 0.02% INH SOLN 0.5 MG/2.5 ML VIAL INHALATION ×4 (00:10→23:55)
[2021-04-04] MEDS: ALBUTEROL SULFATE NEB 2.5 MG/0.5 ML INH 5 MG INHALATION ×4 (00:10→23:55)
[2021-04-04 00:15] LABS: Glucose Point of Care 212 mg/dl (65-105)
[2021-04-04] MEDS: INSULIN ASPART (*BKC) 100 UNITS/ML SUB-Q ×2 (00:35→17:47)
[2021-04-04] MEDS: FENTANYL 2,500MCG/NS250ML(*CRX 2,500 MCG/250 ML BAG 17.5 MCG IV CONT ×2 (05:46→19:56)
[2021-04-04] MEDS: CENTRAL LINE FLUSH 10 ML IV PUSH ×3 (05:48→19:58)
[2021-04-04 06:17] LABS: Basophils Percent Auto 0.1 % (0.2-1.2); Eosinophils Percent Auto 0.2 % (0-4.4); Hematocrit 35.5 % (42.0-52.0); Hemoglobin 11.4 g/dL (14.0-18.0); Immature Granulocyte Absolute 1.06 K/mm3 (0.00-0.031); Immature Granulocyte Percent A 10.3 % (0-0.5); Lymphocytes Absolute Auto 1.36 K/mm3 (0.9-3.2); Lymphocytes Percent Auto 13.2 % (18.3-44.2); Mean Corpuscular HGB Conc 32.1 g/dl (32-36); Mean Corpuscular Hemoglobin 29.6 pg (26-34); Mean Corpuscular Volume 92.2 fl (80-100); Mean Platelet Volume 10.1 fl (7.4-10.4); Monocytes Absolute Auto 0.6 K/mm3 (0.1-0.6); Monocytes Percent Auto 5.3 % (2.6-8.5); Neutrophils Absolute Auto 7.3 K/mm3 (1.3-6.7); Neutrophils Percent Auto 70.9 % (45.5-73.1); Nucleated Red Blood Cells Perc 0.3 % (0.0-0.2); Platelet Count Result 445 k/mm3 (150-375); Red Blood Count 3.85 M/mm3 (4.6-6.20); Red Cell Distribution Width 14.6 % (11.5-14.5); White Blood Count 10.3 K/mm3 (4.5-10.0)
[2021-04-04 06:34] LABS: Glucose Point of Care 184 mg/dl (65-105)
[2021-04-04 06:39] LABS: Alveolar/Arterial O2 Gradient 322.3 mmHg; Base Excess ABG 3.7 mEq/l (+/-2.0); Carboxyhemoglobin 0.3 % THb (0-2.0); Device VENTILATOR; Fractional Inspired Oxygen 70 %; HCO3 ABG 29.2 mEq/l (22.0-26.0); Methemoglobin ABG 0.3 %THb (0-1.5); Oxygen Content ABG 17.1 %vol (16.0-22.0); Oxygen Saturation ABG 98.5 % (95.0-100.0); Oxyhemoglobin 96.8 % THb (90.0-100.0); PCO2 ABG 47.9 mmHg (35.0-45.0); PO2 ABG 125.3 mmHg (80.0-100.0); PO2 FiO2 Ratio Arterial Blood 1.79 %; Reduced Hemoglobin 2.6 %THb (0-5.0); Site Drawn LEFT RADIAL; Total Hemoglobin 12.4 g/dL (12.0-18.0); pH ABG 7.403 (7.350-7.450)
[2021-04-04 06:40] LABS: Arterial Blood Gas PEEP 14 cmH2O; Arterial Blood Gas Tidal Volume 400 ml; Arterial Blood Gas Vent Mode CMV; Arterial Blood Gas Ventilator rate 28 /MIN
[2021-04-04 07:04] LABS: INR 1.3; Prothrombin Time 15.5 Seconds (11.1-14.7)
[2021-04-04] MEDS: ENOXAPARIN 40 MG/0.4 ML SYRINGE SUB-Q (09:02)
[2021-04-04] MEDS: MINERAL OIL/WHITE PETROLATUM OINTMENT 1 APPLIC EACH EYE ×2 (09:02→19:58)
[2021-04-04] MEDS: BARICITINIB 2 MG TABLET PO (09:03)
[2021-04-04 09:33] LABS: Alanine Aminotransferase 41 U/L (4-50); Albumin Level 3.2 g/dL (3.5-5.1); Alkaline Phosphatase 58 U/L (38-126); Anion Gap 3 mmol/L (8-16); Aspartate Amino Transferase 45 U/L (17-59); Bilirubin,Total 0.4 mg/dL (0.2-1.3); Blood Urea Nitrogen 37 mg/dL (9-20); Calcium 7.5 mg/dL (8.4-10.2); Carbon Dioxide 33 mmol/L (22-30); Chloride 106 mmol/L (98-107); Estimated CRCL calculation 93 ml/min; Estimated Glomerular Filt Rate > 60; Glucose 167 mg/dL (65-110); Phosphorus 2.8 mg/dL (2.5-4.5); Potassium 4.5 mmol/L (3.4-5.0); Sodium 142 mmol/L (137-145)
--- NOTE | 2021-04-04 09:33 | PCNFU ---
Nutrition Follow-Up Complete: Unintended weight loss related to decreased appetite as evidenced by weight loss of 19.8 lbs. since 04/18/2020 per EMR. Goal: Pt. to meet estimated nutritional needs. Pt. is progressing towards goal. No new goal at this time. Pt current nutrition is Jevity 1.2 at 70 mls per hour over 22 hours per day. Last recorded weight is 126.3 kg. Recommend re-weighing pt. prior to discharge. Bowel Motility: + BM 03/31/2021 Labs Reviewed: Hgb 11.8, Hct 36.6, Alb 3.4, Mg 3.1, BUN 45, Cr 1.4, Glu 217 Meds Noted: Albuterol, Budesonide, Lovenox, Novolog, Atrovent Neb, Remdesivir, Topamax Skin: No skin breakdown at this time. WNL. Additional Notes: Pt. is receiving 1848 calories, 85 grams of protein and 1242 mls of water from feeding. Just recently bumped feeding to goal rate of 70 mls per hour and had a residual of 80 mls. Current tube feeding flush is 30 ml q4. Will continue to closely monitor residuals and electrolytes for signs of intolerance. Monitor every Tuesday and Tuesday.
--- NOTE | 2021-04-04 10:41 | PCNSR ---
On 04/04/21, the student, Alessandra Marmolejo, provided care and completed [facility] documentation on this patient. I have reviewed the student's documentation and agree with the findings.
[2021-04-04] MEDS: REMDESIVIR 100 MG/NS 250 ML 100 MG/250 ML BAG 250 MG IVPB (11:28)
[2021-04-04] MEDS: PANTOPRAZOLE SODIUM IV 40 MG VIAL IV PUSH (11:28)
[2021-04-04 11:51] LABS: Glucose Point of Care 168 mg/dl (65-105)
--- NOTE | 2021-04-04 12:59 | WPDINTPN ---
Progress Note: A&P Assessment and Plan (1) Acute respiratory failure with hypoxia: Code(s): J96.01 - Acute respiratory failure with hypoxia Status: Acute Assessment and Plan: Patient presented to the hospital on 03/28/2021 with SOB, decreased smell and taste, cough, decreased appetite. 04/01 Pt was on BiPAP, 100% FiO2, hypoxia with O2 sats in the early and mid 80s. - Patient was brought to the ICU intubated -on 04/01 - currently on CMV mode of ventilation peep of 14, 70% FiO2., wean FiO2 as tolerated -will prone patient for 16 hrs daily -ABGs and CXR reviewed -continue bronchodilators and Pulmicort -sedated with fentanyl Versed infusion, currently synchronous with the ventilator (2) Pneumonia due to COVID-19 virus: Code(s): U07.1 - COVID-19; J12.82 - Pneumonia due to coronavirus disease 2019 Status: Acute Assessment and Plan: SARS-CoV-2 positive on 03/28/2021, unvaccinated -continue dexamethasone, baricitinib -patient completed remdesivir on 04/04 -inflammatory markers are elevated, will continue to trend -continue droplet, airborne, contact isolation/precautions (3) New onset type 2 diabetes mellitus: Code(s): E11.9 - Type 2 diabetes mellitus without complications Status: Acute Assessment and Plan: New onset diabetes mellitus -continue sliding scale insulin (4) Transaminitis: Code(s): R74.01 - Elevation of levels of liver transaminase levels Status: Acute Assessment and Plan: Likely related to hypoxia due to COVID pneumonia -LFTs improved (5) Epilepsy: Qualifiers: Epilepsy type: unspecified Code(s): G40.909 - Epilepsy, unspecified, not intractable, without status epilepticus Status: Acute Assessment and Plan: History of epilepsy, continue phenobarbital (6) DVT prophylaxis: Code(s): Z29.9 - Encounter for prophylactic measures, unspecified Status: Acute Assessment and Plan: Continue enoxaparin (7) Dietary counseling and surveillance: Code(s): Z71.3 - Dietary counseling and surveillance Status: Acute Assessment and Plan: Tolerating tube feeds -positive bowel movements Additional Plan Discussed with Arpita patient'alecia lucero and updated with patient's condition and plan of care. I answered all questions. Code status: Full code Critical care time spent: 32 minutes This dictation may have been done utilizing a voice recognition system. Attempts have been made to correct errors. However, there may be uncorrected grammatical, spelling, and recognition errors present. Due to a high probability of clinically significant, life threatening deterioration, the patient required my highest level of preparedness to intervene emergently and I personally spent this critical care time directly and personally managing the patient. This critical care time included obtaining a history; examining the patient; pulse oximetry; ordering and review of studies; arranging urgent treatment with development of a management plan; evaluation of patient's response to treatment; frequent reassessment; and discussions with other providers. It was exclusive of separately billable procedures and treating other patients and teaching time. Please see Assessment and Plan section and the rest of the note for further information on patient assessment and treatment Subjective Date/time seen: 04/04/21 12:59 Interval history: Reason for consult: Acute hypoxic respiratory failure, COVID-19 pneumonia, has not received COVID vaccine, Intubated on 04/01/2021 04/04/2021: Patient remains intubated on CMV mode of ventilation, 14 of PEEP and 70% FiO2. Patient in prone position. Sedated with fentanyl Versed infusion, opens eyes to name, follows simple commands with upper extremities. Patient is tolerating tube feeds, positive bowel bowel movement. Adequate urine output, hemodynamically stable. Review of Systems Rev
[2021-04-04] MEDS: BUDESONIDE RESPULE NEB 0.5 MG/2 ML AMP INHALATION ×2 (15:23→20:10)
[2021-04-04 17:48] LABS: Glucose Point of Care 242 mg/dl (65-105)
[2021-04-04] MEDS: MIDAZOLAM 100MG/NS 100ML(*CRX) 100 MG/100 ML BAG IV CONT (17:48)
[2021-04-04] MEDS: MELATONIN 5 MG TABLET PO (19:57)
[2021-04-04] MEDS: PHENobarbitaL (*CRX) 30 MG TABLET PO (19:58)
[2021-04-04] MEDS: TOPIRAMATE 25 MG TABLET 50 MG PO (19:58)
[2021-04-04] MEDS: PHENobarbital (*CRX) 60 MG TABLET 120 MG PO (19:58)
[2021-04-04 23:51] LABS: Glucose Point of Care 187 mg/dl (65-105)
[2021-04-05] VITALS (33 sets, daily range): BP systolic 112–138; BP diastolic 70–95; PULSE 70–118; RESP 28–30; TEMP 36.8–37.2; O2SAT 89–95
[2021-04-05] MEDS: IPRATROPIUM BR 0.02% INH SOLN 0.5 MG/2.5 ML VIAL INHALATION ×4 (04:04→21:00)
[2021-04-05] MEDS: ALBUTEROL SULFATE NEB 2.5 MG/0.5 ML INH 5 MG INHALATION ×5 (04:04→21:00)
[2021-04-05 05:13] LABS: Base Excess ABG 2.9 mEq/l (+/-2.0); HCO3 ABG 29.1 mEq/l (22.0-26.0); Oxygen Saturation ABG 94.8 % (95.0-100.0); PCO2 ABG 51.8 mmHg (35.0-45.0); PO2 ABG 76.8 mmHg (80.0-100.0); pH ABG 7.367 (7.350-7.450)
[2021-04-05 05:14] LABS: Alveolar/Arterial O2 Gradient 221.4 mmHg; Carboxyhemoglobin 0.3 % THb (0-2.0); Device VENTILATOR; Fractional Inspired Oxygen 50 %; Methemoglobin ABG 0.3 %THb (0-1.5); Modified Allen's Test Unable to perform; Oxygen Content ABG 15.9 %vol (16.0-22.0); PO2 FiO2 Ratio Arterial Blood 1.54 %; Reduced Hemoglobin 6.4 %THb (0-5.0); Site Drawn LEFT RADIAL; Total Hemoglobin 12.1 g/dL (12.0-18.0)
[2021-04-05 05:15] LABS: Arterial Blood Gas PEEP 14 cmH2O; Arterial Blood Gas Tidal Volume 400 ml; Arterial Blood Gas Vent Mode CMV; Arterial Blood Gas Ventilator rate 28 /MIN
[2021-04-05 05:26] LABS: Glucose Point of Care 250 mg/dl (65-105)
[2021-04-05] MEDS: INSULIN ASPART (*BKC) 100 UNITS/ML SUB-Q ×3 (05:29→17:21)
[2021-04-05] MEDS: CENTRAL LINE FLUSH 10 ML IV PUSH ×3 (05:30→21:56)
[2021-04-05 05:34] LABS: Basophils Percent Auto 0.1 % (0.2-1.2); Eosinophils Percent Auto 0.1 % (0-4.4); Hematocrit 36.1 % (42.0-52.0); Hemoglobin 11.2 g/dL (14.0-18.0); Immature Granulocyte Absolute 2.01 K/mm3 (0.00-0.031); Immature Granulocyte Percent A 14.1 % (0-0.5); Lymphocytes Percent Auto 10.5 % (18.3-44.2); Mean Corpuscular Hemoglobin 29.3 pg (26-34); Mean Corpuscular Volume 94.5 fl (80-100); Mean Platelet Volume 10.2 fl (7.4-10.4); Monocytes Absolute Auto 0.9 K/mm3 (0.1-0.6); Monocytes Percent Auto 6.5 % (2.6-8.5); Neutrophils Absolute Auto 9.8 K/mm3 (1.3-6.7); Neutrophils Percent Auto 68.7 % (45.5-73.1); Nucleated Red Blood Cells Absolute Auto 0.1 K/mm3 (0.0-0.012); Nucleated Red Blood Cells Perc 0.4 % (0.0-0.2); Platelet Count Result 466 k/mm3 (150-375); Red Blood Count 3.82 M/mm3 (4.6-6.20); Red Cell Distribution Width 14.7 % (11.5-14.5); White Blood Count 14.3 K/mm3 (4.5-10.0)
[2021-04-05 05:48] LABS: Alanine Aminotransferase 42 U/L (4-50); Albumin Level 3.6 g/dL (3.5-5.1); Alkaline Phosphatase 74 U/L (38-126); Anion Gap 8 mmol/L (8-16); Aspartate Amino Transferase 33 U/L (17-59); Bilirubin,Total 0.2 mg/dL (0.2-1.3); Blood Urea Nitrogen 37 mg/dL (9-20); Calcium 7.8 mg/dL (8.4-10.2); Carbon Dioxide 28 mmol/L (22-30); Chloride 104 mmol/L (98-107); Estimated CRCL calculation 78 ml/min; Estimated Glomerular Filt Rate > 60; Glucose 275 mg/dL (65-110); Phosphorus 3.4 mg/dL (2.5-4.5); Potassium 4.3 mmol/L (3.4-5.0); Sodium 140 mmol/L (137-145)
[2021-04-05] MEDS: FENTANYL 2,500MCG/NS250ML(*CRX 2,500 MCG/250 ML BAG 20 MCG IV CONT ×2 (08:46→21:54)
[2021-04-05] MEDS: ENOXAPARIN 40 MG/0.4 ML SYRINGE SUB-Q (08:49)
[2021-04-05] MEDS: MINERAL OIL/WHITE PETROLATUM OINTMENT 1 APPLIC EACH EYE ×2 (08:49→21:19)
[2021-04-05] MEDS: BARICITINIB 2 MG TABLET PO (08:50)
[2021-04-05] MEDS: PANTOPRAZOLE SODIUM IV 40 MG VIAL IV PUSH (08:50)
[2021-04-05] MEDS: BUDESONIDE RESPULE NEB 0.5 MG/2 ML AMP INHALATION ×2 (09:59→21:00)
[2021-04-05] MEDS: MIDAZOLAM 100MG/NS 100ML(*CRX) 100 MG/100 ML BAG 6 MG IV CONT (12:02)
[2021-04-05] MEDS: REMDESIVIR 100 MG/NS 250 ML 100 MG/250 ML BAG 250 MG IVPB (12:04)
[2021-04-05 12:26] LABS: Glucose Point of Care 267 mg/dl (65-105)
[2021-04-05] MEDS: METOCLOPRAMIDE HCL INJ 10 MG/2 ML VIAL 5 MG IV PUSH ×3 (12:30→23:18)
--- NOTE | 2021-04-05 13:50 | PM.IMPN ---
Progress Note: A&P Assessment and Plan (1) Acute respiratory failure with hypoxia: Code(s): J96.01 - Acute respiratory failure with hypoxia Status: Acute Assessment and Plan: Now on a ventilator satting 90% of 50% FIO2 04/01 Pt was on BiPAP, 100% FiO2, hypoxia with O2 sats in the mid 80s and was intubated -Pt continues to be intermittently proned -CXR pending today but shows improvement on the left and worsening on the right yesterday -sedated with fentanyl Versed infusion, currently synchronous with the ventilator -bnp normal, CHF seems less likely (2) Pneumonia due to COVID-19 virus: Code(s): U07.1 - COVID-19; J12.82 - Pneumonia due to coronavirus disease 2018 Status: Acute Assessment and Plan: SARS-CoV-2 positive on 03/28/2021, unvaccinated -continue dexamethasone, remdesivir, and baricitinib -continue isolation - bilateral infiltrates on his CTA on admission and worsening pneumonia noted on x-ray (3) New onset type 2 diabetes mellitus: Code(s): E11.9 - Type 2 diabetes mellitus without complications Status: Acute Assessment and Plan: Last glucose 267, increased with tube feedings -New onset diabetes mellitus -continue sliding scale insulin -would recommend metformin at discharge (4) Transaminitis: Code(s): R74.01 - Elevation of levels of liver transaminase levels Status: Acute Assessment and Plan: resolved -Likely related to COVID -hepatitis negative (5) Epilepsy: Qualifiers: Epilepsy type: unspecified Code(s): G40.909 - Epilepsy, unspecified, not intractable, without status epilepticus Status: Acute Assessment and Plan: History of epilepsy - continue phenobarbital and topamax (6) DVT prophylaxis: Code(s): Z29.9 - Encounter for prophylactic measures, unspecified Status: Acute Assessment and Plan: Continue enoxaparin (7) Dietary counseling and surveillance: Code(s): Z71.3 - Dietary counseling and surveillance Status: Acute Assessment and Plan: Pt on tube feedings Subjective Date/time seen: 04/05/21 13:50 Interval history: Pt is a 55-year-old male here for COVID. Patient was seen today while sedated. RN states there are no new events overnight. Exam Narrative: General: intubated and sedated in no acute distress Cardiac: RRR HR 98 Lungs: Coarse breath sounds bilaterally but fairly clear Abdomen: Soft: Nontender, nondistended, + BS Extremities: Warm, pedal pulses are palpable, no edema : Pereira catheter in place, draining clear yellow urine Skin: Warm and dry Neuro: Patient intubated, sedated, pupils are equal and reactive Objective Data Vital Signs Vital Signs: Vital Signs - 24 hr 04/04/21 14:00 04/04/21 15:18 04/04/21 15:24 Temperature Pulse Rate 66 90 90 Respiratory Rate 28 H 28 H 28 H Blood Pressure 127/84 Pulse Oximetry 93 91 04/04/21 16:00 04/04/21 16:12 04/04/21 16:13 Temperature 98.3 F Pulse Rate 80 79 78 Respiratory Rate 28 H 28 H 28 H Blood Pressure 128/79 Pulse Oximetry 95 04/04/21 17:48 04/04/21 18:00 04/04/21 19:56 Temperature Pulse Rate 85 81 79 Respiratory Rate 28 H 28 H 28 H Blood Pressure 135/73 Pulse Oximetry 93 04/04/21 19:59 04/04/21 20:00 04/04/21 20:11 Temperature 98 F Pulse Rate 79 84 69 Respiratory Rate 28 H 28 H 28 H Blood Pressure 110/64 Pulse Oximetry 95 04/04/21 20:12 04/04/21 20:20 04/04/21 21:37 Temperature Pulse Rate 73 76 72 Respiratory Rate 28 H 28 H Blood Pressure 110/64 Pulse Oximetry 95 93 04/04/21 23:00 04/04/21 23:55 04/05/21 00:00 Temperature 98.9 F Pulse Rate 105 H 107 H 109 H Respiratory Rate 29 H 28 H Blood Pressure 135/73 Pulse Oximetry 94 93 04/05/21 02:00 04/05/21 04:00 04/05/21 04:04 Temperature 98.7 F Pulse Rate 91 114 H 89 Respiratory Rate 28 H 28 H 28 H Blood Pressure 13
--- NOTE | 2021-04-05 13:51 | WPDINTPN ---
Progress Note: A&P Assessment and Plan (1) Acute respiratory failure with hypoxia: Code(s): J96.01 - Acute respiratory failure with hypoxia Status: Acute Assessment and Plan: Patient presented to the hospital on 03/28/2021 with SOB, decreased smell and taste, cough, decreased appetite. 04/01 Pt was on BiPAP, 100% FiO2, hypoxia with O2 sats in the early and mid 80s. - Patient was brought to the ICU intubated -on 04/01 - currently on CMV mode of ventilation peep of 14, 50% FiO2, wean FiO2 as tolerated -will prone patient for 16 hrs daily -ABGs and CXR reviewed -continue bronchodilators and Pulmicort -sedated with fentanyl Versed infusion, currently synchronous with the ventilator (2) Pneumonia due to COVID-19 virus: Code(s): U07.1 - COVID-19; J12.82 - Pneumonia due to coronavirus disease 2019 Status: Acute Assessment and Plan: SARS-CoV-2 positive on 03/28/2021, unvaccinated -continue dexamethasone, baricitinib -patient completed remdesivir on 04/04 -inflammatory markers are elevated, will continue to trend -continue droplet, airborne, contact isolation/precautions (3) New onset type 2 diabetes mellitus: Code(s): E11.9 - Type 2 diabetes mellitus without complications Status: Acute Assessment and Plan: New onset diabetes mellitus -continue sliding scale insulin (4) Transaminitis: Code(s): R74.01 - Elevation of levels of liver transaminase levels Status: Acute Assessment and Plan: Likely related to hypoxia due to COVID pneumonia -LFTs improved (5) Epilepsy: Qualifiers: Epilepsy type: unspecified Code(s): G40.909 - Epilepsy, unspecified, not intractable, without status epilepticus Status: Acute Assessment and Plan: History of epilepsy, continue phenobarbital (6) DVT prophylaxis: Code(s): Z29.9 - Encounter for prophylactic measures, unspecified Status: Acute Assessment and Plan: Continue enoxaparin (7) Dietary counseling and surveillance: Code(s): Z71.3 - Dietary counseling and surveillance Status: Acute Assessment and Plan: Tolerating tube feeds -positive bowel movements Additional Plan Discussed with Arpita patient'alecia lucero and updated with patient's condition and plan of care. I answered all questions. Code status: Full code Critical care time spent: 32 minutes This dictation may have been done utilizing a voice recognition system. Attempts have been made to correct errors. However, there may be uncorrected grammatical, spelling, and recognition errors present. Due to a high probability of clinically significant, life threatening deterioration, the patient required my highest level of preparedness to intervene emergently and I personally spent this critical care time directly and personally managing the patient. This critical care time included obtaining a history; examining the patient; pulse oximetry; ordering and review of studies; arranging urgent treatment with development of a management plan; evaluation of patient's response to treatment; frequent reassessment; and discussions with other providers. It was exclusive of separately billable procedures and treating other patients and teaching time. Please see Assessment and Plan section and the rest of the note for further information on patient assessment and treatment Subjective Date/time seen: 04/05/21 13:51 Interval history: Reason for consult: Acute hypoxic respiratory failure, COVID-19 pneumonia, has not received COVID vaccine, Intubated on 04/01/2021 04/05/2021: Patient remains intubated on CMV mode of ventilation, 14 of PEEP and 50% FiO2. Patient in supine position. Sedated with fentanyl Versed infusion, opens eyes to name, follows simple commands with upper extremities. Patient is tolerating tube feeds. Adequate urine output, hemodynamically stable., afebrile. WBC has increased to 14.3 Review of Syste
[2021-04-05 14:02] LABS: INR 1.2; Prothrombin Time 14.9 Seconds (11.1-14.7)
[2021-04-05] MEDS: MIDAZOLAM HCL (*CRX) 2 MG/2 ML VIAL IV PUSH (15:00)
[2021-04-05] MEDS: PROPOFOL IV EMULSION 100 ML 3.79 MG IV CONT (15:00)
[2021-04-05 18:30] LABS: Glucose Point of Care 347 mg/dl (65-105)
[2021-04-05] MEDS: PHENobarbitaL (*CRX) 30 MG TABLET PO (20:34)
[2021-04-05] MEDS: MELATONIN 5 MG TABLET PO (20:34)
[2021-04-05] MEDS: PHENobarbital (*CRX) 60 MG TABLET 120 MG PO (20:34)
[2021-04-05] MEDS: TOPIRAMATE 25 MG TABLET 50 MG PO (20:35)
[2021-04-05] MEDS: DORNASE ALFA INH SOLN 1 MG/ML 2.5 ML AMP 2.5 MG INHALATION (21:00)
[2021-04-05 23:26] LABS: Glucose Point of Care 244 mg/dl (65-105)
[2021-04-06] VITALS (37 sets, daily range): BP systolic 97–132; BP diastolic 66–86; PULSE 69–98; RESP 28; TEMP 36.2–37.7; O2SAT 89–96
--- NOTE | 2021-04-06 02:19 | PCRCNOTE ---
Window of time for administration has passed. See next scheduled administration.
[2021-04-06] MEDS: INSULIN ASPART (*BKC) 100 UNITS/ML SUB-Q ×4 (02:43→18:52)
[2021-04-06] MEDS: IPRATROPIUM BR 0.02% INH SOLN 0.5 MG/2.5 ML VIAL INHALATION ×4 (03:59→21:47)
[2021-04-06] MEDS: ALBUTEROL SULFATE NEB 2.5 MG/0.5 ML INH 5 MG INHALATION ×4 (04:00→21:46)
[2021-04-06 04:41] LABS: Base Excess ABG 0.7 mEq/l (+/-2.0); Carboxyhemoglobin 0.3 % THb (0-2.0); Device VENTILATOR; Fractional Inspired Oxygen 50 %; Methemoglobin ABG 0.2 %THb (0-1.5); Modified Allen's Test Pass; Oxygen Saturation ABG 94.4 % (95.0-100.0); Oxyhemoglobin 93.3 % THb (90.0-100.0); PCO2 ABG 49.3 mmHg (35.0-45.0); Reduced Hemoglobin 6.2 %THb (0-5.0); Site Drawn LEFT RADIAL; Total Hemoglobin 14.5 g/dL (12.0-18.0); pH ABG 7.356 (7.350-7.450)
[2021-04-06 04:42] LABS: Arterial Blood Gas Vent Mode CMV; Arterial Blood Gas Ventilator rate 28 /MIN
[2021-04-06 04:43] LABS: Arterial Blood Gas PEEP 14 cmH2O; Arterial Blood Gas Tidal Volume 400 ml
[2021-04-06] MEDS: MIDAZOLAM 100MG/NS 100ML(*CRX) 100 MG/100 ML BAG 6 MG IV CONT ×2 (05:14→22:54)
[2021-04-06] MEDS: METOCLOPRAMIDE HCL INJ 10 MG/2 ML VIAL 5 MG IV PUSH ×4 (05:18→23:00)
[2021-04-06 05:38] LABS: Hematocrit 34.2 % (42.0-52.0); Hemoglobin 10.7 g/dL (14.0-18.0); Mean Corpuscular HGB Conc 31.3 g/dl (32-36); Mean Corpuscular Hemoglobin 30.1 pg (26-34); Mean Corpuscular Volume 96.3 fl (80-100); Mean Platelet Volume 10.3 fl (7.4-10.4); Platelet Count Result 473 k/mm3 (150-375); Red Blood Count 3.55 M/mm3 (4.6-6.20); White Blood Count 14.6 K/mm3 (4.5-10.0)
[2021-04-06 05:50] LABS: INR 1.2; Prothrombin Time 15.2 Seconds (11.1-14.7)
[2021-04-06 05:52] LABS: D Dimer 1.07 ug/mL (<0.48)
[2021-04-06 05:57] LABS: Alanine Aminotransferase 39 U/L (4-50); Albumin Level 3.4 g/dL (3.5-5.1); Alkaline Phosphatase 67 U/L (38-126); Anion Gap 4 mmol/L (8-16); Aspartate Amino Transferase 37 U/L (17-59); Bilirubin,Total 0.2 mg/dL (0.2-1.3); Blood Urea Nitrogen 37 mg/dL (9-20); CRP 7.5 mg/dL (<1.0); Calcium 8.3 mg/dL (8.4-10.2); Carbon Dioxide 32 mmol/L (22-30); Chloride 105 mmol/L (98-107); Estimated CRCL calculation 93 ml/min; Estimated Glomerular Filt Rate > 60; Glucose 247 mg/dL (65-110); Magnesium 3.1 mg/dL (1.6-2.3); Phosphorus 3.4 mg/dL (2.5-4.5); Potassium 4.8 mmol/L (3.4-5.0); Sodium 141 mmol/L (137-145)
[2021-04-06 06:11] LABS: Atypical Lymphocytes Present; Band Neutrophils Percent 6 % (0-6); Lymphocytes Absolute Manual 2.62 K/mm3 (1.1-4.5); Metamyelocytes Percent 2 %; Neutrophils Absolute Manual 11.68 K/mm3 (1.3-6.7); Neutrophils Percent Manual 74 % (46-73); Platelet Estimate Increased (Adequate); Total Cells Counted 100
[2021-04-06] MEDS: CENTRAL LINE FLUSH 10 ML IV PUSH ×3 (06:56→22:57)
[2021-04-06] MEDS: BUDESONIDE RESPULE NEB 0.5 MG/2 ML AMP INHALATION ×2 (08:34→21:46)
[2021-04-06] MEDS: DORNASE ALFA INH SOLN 1 MG/ML 2.5 ML AMP 2.5 MG INHALATION ×2 (08:34→21:47)
[2021-04-06] MEDS: PROPOFOL IV EMULSION 100 ML 7.58 MG IV CONT ×2 (10:34→23:26)
[2021-04-06] MEDS: FUROSEMIDE INJ 40 MG/4 ML VIAL IV PUSH (10:35)
[2021-04-06] MEDS: ENOXAPARIN 40 MG/0.4 ML SYRINGE SUB-Q (10:36)
[2021-04-06] MEDS: REMDESIVIR 100 MG/NS 250 ML 100 MG/250 ML BAG 250 MG IVPB (10:36)
[2021-04-06] MEDS: INSULIN GLARGINE (*BKC) 100 UNITS/ML 10 UNITS SUB-Q (10:37)
[2021-04-06] MEDS: MINERAL OIL/WHITE PETROLATUM OINTMENT 1 APPLIC EACH EYE ×2 (10:37→21:25)
[2021-04-06] MEDS: PANTOPRAZOLE SODIUM IV 40 MG VIAL IV PUSH (10:37)
[2021-04-06] MEDS: BARICITINIB 2 MG TABLET PO (10:38)
[2021-04-06] MEDS: FENTANYL 2,500MCG/NS250ML(*CRX 2,500 MCG/250 ML BAG 20 MCG IV CONT ×2 (10:39→23:27)
--- NOTE | 2021-04-06 11:58 | PCFNICU ---
ICU Rounding Note: Pt current nutrition is Glucerna 1.2 at 70 ml/hr over 22 hours. Last recorded weight is 126.3 kg, no new weight to report. Bowel Motility:+BM reported 03/31 Labs Reviewed:Mg 3.1,BUN 37, Alb 3.4, Hct 34.2,Hgb 10.7 Meds Noted:Versed, Lantus, Novolog, Protonix, Fentanyl, Lovenox. Skin:WNL Additional Notes:Patient remains on mechanical vent and tube feeding changed from Jevity 1.2 to Glucerna 1.2 at 70 ml/hr over 22 hours due to elevated blood sugar levels. Decreasing Propofol, currently at 7.58 ml/ca=661 kcals. Agree with diet orders. Following daily in ICU rounds. Assessing/reassessing Tuesday and Tuesday.
--- NOTE | 2021-04-06 13:31 | WPDINTPN ---
Progress Note: A&P Assessment and Plan (1) Acute respiratory failure with hypoxia: Code(s): J96.01 - Acute respiratory failure with hypoxia Status: Acute Assessment and Plan: Patient presented to the hospital on 03/28/2021 with SOB, decreased smell and taste, cough, decreased appetite. 04/01 Pt was on BiPAP, 100% FiO2, hypoxia with O2 sats in the early and mid 80s. - Patient was brought to the ICU intubated -on 04/01 - currently on CMV mode of ventilation peep of 14, 50% FiO2, wean FiO2 as tolerated -will prone patient for 16 hrs daily -ABGs and CXR reviewed -continue bronchodilators and Pulmicort -sedated with fentanyl Versed and propofol infusion, currently synchronous with the ventilator (2) Pneumonia due to COVID-19 virus: Code(s): U07.1 - COVID-19; J12.82 - Pneumonia due to coronavirus disease 2019 Status: Acute Assessment and Plan: SARS-CoV-2 positive on 03/28/2021, unvaccinated -continue dexamethasone, baricitinib -patient to receive a total of 10 days of remdesivir -inflammatory markers are elevated, will continue to trend -continue droplet, airborne, contact isolation/precautions (3) New onset type 2 diabetes mellitus: Code(s): E11.9 - Type 2 diabetes mellitus without complications Status: Acute Assessment and Plan: New onset diabetes mellitus -started on Lantus -continue sliding scale insulin (4) Transaminitis: Code(s): R74.01 - Elevation of levels of liver transaminase levels Status: Acute Assessment and Plan: Likely related to hypoxia due to COVID pneumonia -LFTs improved (5) Epilepsy: Qualifiers: Epilepsy type: unspecified Code(s): G40.909 - Epilepsy, unspecified, not intractable, without status epilepticus Status: Acute Assessment and Plan: History of epilepsy, continue phenobarbital (6) DVT prophylaxis: Code(s): Z29.9 - Encounter for prophylactic measures, unspecified Status: Acute Assessment and Plan: Continue enoxaparin (7) Dietary counseling and surveillance: Code(s): Z71.3 - Dietary counseling and surveillance Status: Acute Assessment and Plan: Tolerating tube feeds -positive bowel movements Additional Plan Discussed with jeremías Palm and updated with patient's condition and plan of care. I answered all questions. Code status: Full code Critical care time spent: 32 minutes This dictation may have been done utilizing a voice recognition system. Attempts have been made to correct errors. However, there may be uncorrected grammatical, spelling, and recognition errors present. Due to a high probability of clinically significant, life threatening deterioration, the patient required my highest level of preparedness to intervene emergently and I personally spent this critical care time directly and personally managing the patient. This critical care time included obtaining a history; examining the patient; pulse oximetry; ordering and review of studies; arranging urgent treatment with development of a management plan; evaluation of patient's response to treatment; frequent reassessment; and discussions with other providers. It was exclusive of separately billable procedures and treating other patients and teaching time. Please see Assessment and Plan section and the rest of the note for further information on patient assessment and treatment Subjective Date/time seen: 04/06/21 13:31 Interval history: Reason for consult: Acute hypoxic respiratory failure, COVID-19 pneumonia, has not received COVID vaccine, Intubated on 04/01/2021 04/06/2021: Patient remains intubated on CMV mode of ventilation, 14 of PEEP and 50% FiO2. Patient in prone position. Sedated with fentanyl Versed infusion, and propofol, not open his eyes or follow simple commands opens eyes to name, follows simple commands with upper extremities. Patient is tolerating tube feeds. A
[2021-04-06 13:47] LABS: Glucose Point of Care 251 mg/dl (65-105)
--- NOTE | 2021-04-06 15:25 | PM.IMPN ---
Progress Note: A&P Assessment and Plan (1) Acute respiratory failure with hypoxia: Code(s): J96.01 - Acute respiratory failure with hypoxia Status: Acute Assessment and Plan: Now on a ventilator satting 93% of 00% FIO2 04/01 Pt was on BiPAP, 100% FiO2, hypoxia with O2 sats in the mid 80s and was intubated -Pt continues to be intermittently proned -CXR show no change and consistent with PNA -sedated with fentanyl Versed infusion, currently synchronous with the ventilator -bnp normal, CHF seems less likely (2) Pneumonia due to COVID-19 virus: Code(s): U07.1 - COVID-19; J12.82 - Pneumonia due to coronavirus disease 2018 Status: Acute Assessment and Plan: SARS-CoV-2 positive on 03/28/2021, unvaccinated -continue dexamethasone, remdesivir, and baricitinib -continue isolation - bilateral infiltrates on his CTA on admission and worsening pneumonia noted on x-ray (3) New onset type 2 diabetes mellitus: Code(s): E11.9 - Type 2 diabetes mellitus without complications Status: Acute Assessment and Plan: Last glucose 251, increased with tube feedings -New onset diabetes mellitus -continue sliding scale insulin -would recommend metformin at discharge (4) Transaminitis: Code(s): R74.01 - Elevation of levels of liver transaminase levels Status: Acute Assessment and Plan: resolved -Likely related to COVID -hepatitis negative (5) Epilepsy: Qualifiers: Epilepsy type: unspecified Code(s): G40.909 - Epilepsy, unspecified, not intractable, without status epilepticus Status: Acute Assessment and Plan: History of epilepsy - continue phenobarbital and topamax (6) DVT prophylaxis: Code(s): Z29.9 - Encounter for prophylactic measures, unspecified Status: Acute Assessment and Plan: Continue enoxaparin (7) Dietary counseling and surveillance: Code(s): Z71.3 - Dietary counseling and surveillance Status: Acute Assessment and Plan: Pt on tube feedings (8) Bacteremia: Code(s): R78.81 - Bacteremia Status: Acute Assessment and Plan: 1/2 cx growing 2 types of coag negative staph, likely contamination. No abx needed. No fevers since 03/31 Subjective Date/time seen: 04/06/21 15:25 Interval history: Pt is a 55-year-old male here for COVID. Patient was seen today while sedated. RN states there are no new events overnight. Exam Narrative: General: intubated and sedated in no acute distress Cardiac: RRR HR 98 Lungs: Coarse breath sounds bilaterally but fairly clear Abdomen: Soft: Nontender, nondistended, + BS Extremities: Warm, pedal pulses are palpable, no edema : Pereira catheter in place, draining clear yellow urine Skin: Warm and dry Neuro: Patient intubated, sedated, pupils are equal and reactive Objective Data Vital Signs Vital Signs: Vital Signs - 24 hr 04/05/21 16:00 04/05/21 17:14 04/05/21 17:15 Temperature 98.3 F Pulse Rate 85 80 80 Respiratory Rate 28 H 28 H 28 H Blood Pressure 125/83 Pulse Oximetry 95 04/05/21 18:00 04/05/21 20:00 04/05/21 21:00 Temperature 98.2 F Pulse Rate 81 70 76 Respiratory Rate 28 H 28 H 28 H Blood Pressure 123/86 113/79 Pulse Oximetry 93 95 95 04/05/21 21:15 04/05/21 21:16 04/05/21 21:54 Temperature Pulse Rate 76 71 71 Respiratory Rate 28 H 28 H 28 H Blood Pressure Pulse Oximetry 04/05/21 22:00 04/05/21 22:35 04/05/21 23:31 Temperature Pulse Rate 90 99 87 Respiratory Rate 28 H 28 H Blood Pressure 124/82 Pulse Oximetry 92 04/06/21 00:00 04/06/21 02:00 04/06/21 03:45 Temperature 97.1 F L Pulse Rate 82 71 76 Respiratory Rate 28 H 28 H Blood Pressure 113/77 109/78 Pulse Oximetry 94 94 04/06/21 04:00 04/06/21 04:01 04/06/21 04:02 Temperature 98.5 F Pulse Rate 76 78 77 Respiratory Rate 28 H 28 H Blood Pressure 106/70
[2021-04-06 16:00] LABS: Glucose Point of Care 336 mg/dl (65-105)
[2021-04-06] MEDS: PHENobarbitaL (*CRX) 30 MG TABLET PO (21:23)
[2021-04-06] MEDS: PHENobarbital (*CRX) 60 MG TABLET 120 MG PO (21:23)
[2021-04-06] MEDS: MELATONIN 5 MG TABLET PO (21:23)
[2021-04-06] MEDS: TOPIRAMATE 25 MG TABLET 50 MG PO (21:24)
[2021-04-06 23:05] LABS: Glucose Point of Care 221 mg/dl (65-105)
[2021-04-07] VITALS (36 sets, daily range): BP systolic 91–123; BP diastolic 61–81; PULSE 28–103; RESP 28–32; TEMP 36.7–38.3; O2SAT 88–97
[2021-04-07] MEDS: INSULIN ASPART (*BKC) 100 UNITS/ML SUB-Q (00:05)
[2021-04-07 04:44] LABS: Basophils Absolute Auto 0.1 K/mm3 (0.0-0.1); Basophils Percent Auto 0.3 % (0.2-1.2); Hematocrit 35.1 % (42.0-52.0); Immature Granulocyte Absolute 1.59 K/mm3 (0.00-0.031); Immature Granulocyte Percent A 10.6 % (0-0.5); Lymphocytes Absolute Auto 1.15 K/mm3 (0.9-3.2); Lymphocytes Percent Auto 7.7 % (18.3-44.2); Mean Corpuscular HGB Conc 31.3 g/dl (32-36); Mean Corpuscular Hemoglobin 29.9 pg (26-34); Mean Corpuscular Volume 95.4 fl (80-100); Mean Platelet Volume 10.2 fl (7.4-10.4); Monocytes Absolute Auto 0.8 K/mm3 (0.1-0.6); Monocytes Percent Auto 5.5 % (2.6-8.5); Neutrophils Absolute Auto 11.3 K/mm3 (1.3-6.7); Neutrophils Percent Auto 75.9 % (45.5-73.1); Nucleated Red Blood Cells Perc 0.2 % (0.0-0.2); Platelet Count Result 448 k/mm3 (150-375); Red Blood Count 3.68 M/mm3 (4.6-6.20); Red Cell Distribution Width 15.1 % (11.5-14.5); White Blood Count 14.9 K/mm3 (4.5-10.0)
[2021-04-07 04:55] LABS: Alanine Aminotransferase 37 U/L (4-50); Albumin Level 3.3 g/dL (3.5-5.1); Alkaline Phosphatase 72 U/L (38-126); Anion Gap 7 mmol/L (8-16); Aspartate Amino Transferase 38 U/L (17-59); Bilirubin,Total 0.3 mg/dL (0.2-1.3); Blood Urea Nitrogen 47 mg/dL (9-20); Calcium 8.7 mg/dL (8.4-10.2); Carbon Dioxide 33 mmol/L (22-30); Chloride 105 mmol/L (98-107); Estimated CRCL calculation 78 ml/min; Estimated Glomerular Filt Rate > 60; Glucose 153 mg/dL (65-110); INR 1.2; Magnesium 3.2 mg/dL (1.6-2.3); Potassium 4.7 mmol/L (3.4-5.0); Prothrombin Time 14.6 Seconds (11.1-14.7); Sodium 145 mmol/L (137-145)
[2021-04-07 05:19] LABS: Alveolar/Arterial O2 Gradient 374.5 mmHg; Base Excess ABG 5.9 mEq/l (+/-2.0); Carboxyhemoglobin 0.3 % THb (0-2.0); Fractional Inspired Oxygen 70 %; HCO3 ABG 30.5 mEq/l (22.0-26.0); Methemoglobin ABG 0.2 %THb (0-1.5); Oxygen Content ABG 19.9 %vol (16.0-22.0); Oxyhemoglobin 94.8 % THb (90.0-100.0); PCO2 ABG 43.7 mmHg (35.0-45.0); PO2 ABG 77.6 mmHg (80.0-100.0); PO2 FiO2 Ratio Arterial Blood 1.11 %; Reduced Hemoglobin 4.7 %THb (0-5.0); Total Hemoglobin 14.9 g/dL (12.0-18.0); pH ABG 7.461 (7.350-7.450)
[2021-04-07 05:20] LABS: Arterial Blood Gas PEEP 14 cmH2O; Arterial Blood Gas Tidal Volume 400 ml; Arterial Blood Gas Vent Mode CMV; Arterial Blood Gas Ventilator rate 28 /MIN; Device VENTILATOR; Modified Allen's Test Pass; Site Drawn RIGHT RADIAL
[2021-04-07] MEDS: METOCLOPRAMIDE HCL INJ 10 MG/2 ML VIAL 5 MG IV PUSH ×4 (05:31→23:22)
[2021-04-07] MEDS: CENTRAL LINE FLUSH 10 ML IV PUSH ×3 (05:32→21:54)
[2021-04-07] MEDS: BUDESONIDE RESPULE NEB 0.5 MG/2 ML AMP INHALATION ×2 (08:39→22:06)
[2021-04-07] MEDS: IPRATROPIUM BR 0.02% INH SOLN 0.5 MG/2.5 ML VIAL INHALATION ×3 (08:40→22:06)
[2021-04-07] MEDS: DORNASE ALFA INH SOLN 1 MG/ML 2.5 ML AMP 2.5 MG INHALATION ×2 (08:40→22:05)
[2021-04-07] MEDS: ALBUTEROL SULFATE NEB 2.5 MG/0.5 ML INH 5 MG INHALATION ×2 (08:40→15:01)
[2021-04-07] MEDS: REMDESIVIR 100 MG/NS 250 ML 100 MG/250 ML BAG 250 MG IVPB (09:42)
[2021-04-07] MEDS: INSULIN GLARGINE (*BKC) 100 UNITS/ML 10 UNITS SUB-Q (09:43)
[2021-04-07] MEDS: PANTOPRAZOLE SODIUM IV 40 MG VIAL IV PUSH (09:48)
[2021-04-07] MEDS: ENOXAPARIN 40 MG/0.4 ML SYRINGE SUB-Q (09:48)
[2021-04-07] MEDS: polyethylene glycoL 3350 17 GM POWD.PACK PO (09:48)
[2021-04-07] MEDS: MINERAL OIL/WHITE PETROLATUM OINTMENT 1 APPLIC EACH EYE ×2 (09:49→20:01)
[2021-04-07] MEDS: BARICITINIB 2 MG TABLET PO (09:49)
[2021-04-07] MEDS: PROPOFOL IV EMULSION 100 ML 7.58 MG IV CONT ×2 (11:25→21:52)
--- NOTE | 2021-04-07 11:32 | WPDINTPN ---
Progress Note: A&P Assessment and Plan (1) Acute respiratory failure with hypoxia: Code(s): J96.01 - Acute respiratory failure with hypoxia Status: Acute Assessment and Plan: Patient presented to the hospital on 03/28/2021 with SOB, decreased smell and taste, cough, decreased appetite. 04/01 Pt was on BiPAP, 100% FiO2, hypoxia with O2 sats in the early and mid 80s. - Patient was brought to the ICU intubated -currently on CMV mode of ventilation peep of 14, 70% % FiO2, wean FiO2 as tolerated -will prone patient for 16- 18hrs daily -ABGs reviewed. Decreased respiratory to 20 and tidal volume to 380 - CXR reviewed -continue bronchodilators and Pulmicort -sedated with fentanyl Versed and propofol infusion, currently synchronous with the ventilator. Not on neuromuscular sunita at this time (2) Pneumonia due to COVID-19 virus: Code(s): U07.1 - COVID-19; J12.82 - Pneumonia due to coronavirus disease 2018 Status: Acute Assessment and Plan: SARS-CoV-2 positive on 03/28/2021, unvaccinated -continue dexamethasone, baricitinib -patient to receive a total of 10 days of remdesivir -inflammatory markers are elevated, will continue to trend -continue droplet, airborne, contact isolation/precautions -blood culture 1/2 growing 2 different strain coag-negative staph which is likely a contaminant. (3) New onset type 2 diabetes mellitus: Code(s): E11.9 - Type 2 diabetes mellitus without complications Status: Acute Assessment and Plan: New onset diabetes mellitus -continue Lantus -continue sliding scale insulin (4) Transaminitis: Code(s): R74.01 - Elevation of levels of liver transaminase levels Status: Acute Assessment and Plan: Likely related to hypoxia due to COVID pneumonia -LFTs improved (5) Epilepsy: Qualifiers: Epilepsy type: unspecified Code(s): G40.909 - Epilepsy, unspecified, not intractable, without status epilepticus Status: Acute Assessment and Plan: History of epilepsy, continue phenobarbital and topiramate (6) DVT prophylaxis: Code(s): Z29.9 - Encounter for prophylactic measures, unspecified Status: Acute Assessment and Plan: Continue enoxaparin (7) Dietary counseling and surveillance: Code(s): Z71.3 - Dietary counseling and surveillance Status: Acute Assessment and Plan: Tolerating tube feeds -positive bowel movements Additional Plan Stress ulcer prophylaxis -PPI Code status: Full code Critical care time spent: 30 minutes This dictation may have been done utilizing a voice recognition system. Attempts have been made to correct errors. However, there may be uncorrected grammatical, spelling, and recognition errors present. Due to a high probability of clinically significant, life threatening deterioration, the patient required my highest level of preparedness to intervene emergently and I personally spent this critical care time directly and personally managing the patient. This critical care time included obtaining a history; examining the patient; pulse oximetry; ordering and review of studies; arranging urgent treatment with development of a management plan; evaluation of patient's response to treatment; frequent reassessment; and discussions with other providers. It was exclusive of separately billable procedures and treating other patients and teaching time. Please see Assessment and Plan section and the rest of the note for further information on patient assessment and treatment Subjective Date/time seen: 04/07/21 11:32 Overnight events reviewed. Afebrile Continues to be on mechanical ventilation 70% FiO2 and 14 of PEEP Continues to be on sedation Vitals acceptable He was placed in prone position overnight Review of Systems Review of Systems: ROS unobtainable: Yes unobtainable due to endotracheal tube Exam Narrative: General: Patient remains intubated and sed
--- NOTE | 2021-04-07 12:00 | PCNFU ---
Nutrition Follow-Up Complete: Unintended weight loss related to decreased appetite as evidenced by weight loss of 19.8 lbs. since 04/18/2020 per EMR. Goal: Pt. to meet estimated nutritional needs. Progressing towards goal. We will continue current goal. Pt current nutrition is Glucerna 1.2 at 70 ml/hr over 22 hours. Last recorded weight is 126.3 kg, no new weight to report. Bowel Motility:+BM reported 04/06 Labs Reviewed:Glu 153,Alb 3.3,BUN 47, Hct 35.1,Hgb 11.0 Meds Noted:Remdesivir, Propofol 7.578 ml/ni=170 kcals, Protonix, Lantus, Versed,Fentanyl, Reglan,Miralax, Albuterol, Lovenox. Skin:WNL Additional Notes: Patient remains on mechanica vent. Tube feedings are being tolerating of Glucerna 1.2 at 70 ml/hr over 22 hours providing 1848 kcals/92 gm protein/1240 ml water. Free water flush 30 ml q 4 hours. Blood sugars improving with formula change. Agree with diet orders. Monitor daily in ICU rounding. Reassessing pt. labs, medications, weight every Tuesday and Tuesday.
[2021-04-07] MEDS: FENTANYL 2,500MCG/NS250ML(*CRX 2,500 MCG/250 ML BAG 20 MCG IV CONT (12:04)
[2021-04-07 12:19] LABS: Glucose Point of Care 184 mg/dl (65-105)
--- NOTE | 2021-04-07 13:36 | PM.IMPN ---
Progress Note: A&P Assessment and Plan (1) Acute respiratory failure with hypoxia: Code(s): J96.01 - Acute respiratory failure with hypoxia Status: Acute Assessment and Plan: Now on a ventilator satting 93% of 70% FIO2 04/01 Pt was on BiPAP, 100% FiO2, hypoxia with O2 sats in the mid 80s and was intubated -Pt continues to be intermittently proned -CXR show no change and consistent with PNA -sedated with fentanyl, propofol, and Versed infusion.currently synchronous with the ventilator -bnp normal, CHF seems less likely (2) Pneumonia due to COVID-19 virus: Code(s): U07.1 - COVID-19; J12.82 - Pneumonia due to coronavirus disease 2018 Status: Acute Assessment and Plan: SARS-CoV-2 positive on 03/28/2021, unvaccinated -continue remdesivir and baricitinib. Dexamethasone complete. Spoke with ICU physician, plan to check CRP and decide if to restart steroids tomorrow. -continue isolation (3) New onset type 2 diabetes mellitus: Code(s): E11.9 - Type 2 diabetes mellitus without complications Status: Acute Assessment and Plan: Last glucose 184, increased with tube feedings -New onset diabetes mellitus -continue sliding scale insulin -would recommend metformin at discharge (4) Transaminitis: Code(s): R74.01 - Elevation of levels of liver transaminase levels Status: Acute Assessment and Plan: resolved -Likely related to COVID -hepatitis negative (5) Epilepsy: Qualifiers: Epilepsy type: unspecified Code(s): G40.909 - Epilepsy, unspecified, not intractable, without status epilepticus Status: Acute Assessment and Plan: History of epilepsy - continue phenobarbital and topamax (6) DVT prophylaxis: Code(s): Z29.9 - Encounter for prophylactic measures, unspecified Status: Acute Assessment and Plan: Continue enoxaparin (7) Dietary counseling and surveillance: Code(s): Z71.3 - Dietary counseling and surveillance Status: Acute Assessment and Plan: Pt on tube feedings (8) Bacteremia: Code(s): R78.81 - Bacteremia Status: Acute Assessment and Plan: 1/2 cx growing 2 types of coag negative staph, likely contamination. No abx needed. No fevers since 03/31 Subjective Date/time seen: 04/07/21 13:36 Interval history: Pt is a 55-year-old male here for COVID. Patient was seen today while sedated. RN states there are no new events overnight. Exam Narrative: General: intubated and sedated in no acute distress Cardiac: RRR HR 98 Lungs: Coarse breath sounds bilaterally but fairly clear Abdomen: Soft: Nontender, nondistended, + BS Extremities: Warm, pedal pulses are palpable, no edema : Pereira catheter in place, draining clear yellow urine Skin: Warm and dry Neuro: Patient intubated, sedated, pupils are equal and reactive Objective Data Vital Signs Vital Signs: Vital Signs - 24 hr 04/06/21 13:53 04/06/21 13:54 04/06/21 14:00 Temperature Pulse Rate 80 80 82 Respiratory Rate 28 H 28 H Blood Pressure 108/73 Pulse Oximetry 93 93 04/06/21 14:05 04/06/21 16:00 04/06/21 17:01 Temperature 100 F H Pulse Rate 83 87 78 Respiratory Rate 28 H 28 H Blood Pressure 129/86 Pulse Oximetry 93 94 04/06/21 18:00 04/06/21 18:52 04/06/21 18:53 Temperature Pulse Rate 77 74 75 Respiratory Rate 28 H 28 H 28 H Blood Pressure 105/73 Pulse Oximetry 96 04/06/21 18:54 04/06/21 20:00 04/06/21 21:47 Temperature 98.3 F Pulse Rate 76 74 72 Respiratory Rate 28 H 28 H 28 H Blood Pressure 104/71 Pulse Oximetry 95 04/06/21 21:54 04/06/21 21:56 04/06/21 22:00 Temperature Pulse Rate 70 74 75 Respiratory Rate 28 H 28 H 28 H Blood Pressure 106/69 Pulse Oximetry 96 96 04/06/21 22:54 04/06/21 23:10 04/06/21 23:26 Temperature Pulse Rate 70 69 69 Respiratory Rate 28 H 28 H 28 H Blo
[2021-04-07] MEDS: MIDAZOLAM 100MG/NS 100ML(*CRX) 100 MG/100 ML BAG 6 MG IV CONT (16:52)
[2021-04-07 17:49] LABS: Glucose Point of Care 171 mg/dl (65-105)
[2021-04-07] MEDS: MELATONIN 5 MG TABLET PO (20:00)
[2021-04-07] MEDS: PHENobarbitaL (*CRX) 30 MG TABLET PO (20:00)
[2021-04-07] MEDS: PHENobarbital (*CRX) 60 MG TABLET 120 MG PO (20:00)
[2021-04-07] MEDS: TOPIRAMATE 25 MG TABLET 50 MG PO (20:01)
[2021-04-07] MEDS: ACETAMINOPHEN 325 MG TABLET 650 MG PO (20:33)
[2021-04-07] MEDS: CISATRACURIUM BESYLATE 200 MG in DEXTROSE 5% 80 ML 11.37 ML IV CONT (22:00)
[2021-04-07] MEDS: CISATRACURIUM BESYLATE 20 MG/10 ML VIAL 18.9 MG IV PUSH (22:02)
--- NOTE | 2021-04-07 22:57 | PC.NURSE ---
2020 Caitlin Olsen informed of elevated temp. orders received.
--- NOTE | 2021-04-07 22:58 | PC.NURSE ---
2124 Dr. Moreno informed of o2 sats 87-89% and updated on status. Orders received. 2144 Stat pcxr done as ordered. Peep increased to 16 0 Nimbex bolus and gtt started as ordered. 2239 Dr Moreno updated with chest xray results and patient status. o2 sats remain 87-89%. no new orders at this time
[2021-04-07 23:30] LABS: Glucose Point of Care 143 mg/dl (65-105)
[2021-04-08] VITALS (24 sets, daily range): BP systolic 45–106; BP diastolic 32–78; PULSE 79–107; RESP 28–32; TEMP 37.6–38.2; O2SAT 40–91
[2021-04-08] MEDS: FENTANYL 2,500MCG/NS250ML(*CRX 2,500 MCG/250 ML BAG 20 MCG IV CONT (00:33)
--- NOTE | 2021-04-08 01:41 | PC.NURSE ---
0050 Dr. Moreno informed of o2 sats 82-83%. Orders received to put patient in supine position 0100 Patient placed in supine postion, o2 sats 79-82%
--- NOTE | 2021-04-08 02:54 | PC.NURSE ---
0255 RT here to do stat abg. o2 sats 70-72%
[2021-04-08 03:08] LABS: Alveolar/Arterial O2 Gradient 611.9 mmHg; Base Excess ABG 3.4 mEq/l (+/-2.0); Carboxyhemoglobin 0.3 % THb (0-2.0); Fractional Inspired Oxygen 100 %; HCO3 ABG 30.4 mEq/l (22.0-26.0); Methemoglobin ABG 0.3 %THb (0-1.5); Oxygen Content ABG 12.8 %vol (16.0-22.0); PCO2 ABG 57.8 mmHg (35.0-45.0); PO2 FiO2 Ratio Arterial Blood 0.43 %; Reduced Hemoglobin 25.7 %THb (0-5.0); Total Hemoglobin 12.4 g/dL (12.0-18.0); pH ABG 7.339 (7.350-7.450)
[2021-04-08 03:11] LABS: PO2 ABG 43.3 mmHg (80.0-100.0)
[2021-04-08 03:12] LABS: Oxygen Saturation ABG 75.2 % (95.0-100.0)
[2021-04-08 03:13] LABS: Oxyhemoglobin 73.7 % THb (90.0-100.0); Site Drawn RIGHT RADIAL
[2021-04-08 03:14] LABS: Arterial Blood Gas Ventilator rate 28 /MIN; Device VENTILATOR
[2021-04-08 03:15] LABS: Arterial Blood Gas PEEP 18 cmH2O; Arterial Blood Gas Tidal Volume 400 ml; Arterial Blood Gas Vent Mode CMV
[2021-04-08] MEDS: ALBUTEROL SULFATE NEB 2.5 MG/0.5 ML INH 5 MG INHALATION ×2 (03:24→08:43)
[2021-04-08] MEDS: IPRATROPIUM BR 0.02% INH SOLN 0.5 MG/2.5 ML VIAL INHALATION ×2 (03:24→08:44)
[2021-04-08 05:19] LABS: Basophils Absolute Auto 0.1 K/mm3 (0.0-0.1); Basophils Percent Auto 0.7 % (0.2-1.2); Hematocrit 38.2 % (42.0-52.0); Hemoglobin 11.6 g/dL (14.0-18.0); Immature Granulocyte Absolute 0.13 K/mm3 (0.00-0.031); Lymphocytes Absolute Auto 0.47 K/mm3 (0.9-3.2); Lymphocytes Percent Auto 3.8 % (18.3-44.2); Mean Corpuscular HGB Conc 30.4 g/dl (32-36); Mean Corpuscular Hemoglobin 29.8 pg (26-34); Mean Corpuscular Volume 98.2 fl (80-100); Mean Platelet Volume 10.5 fl (7.4-10.4); Monocytes Absolute Auto 0.3 K/mm3 (0.1-0.6); Monocytes Percent Auto 2.6 % (2.6-8.5); Neutrophils Absolute Auto 11.5 K/mm3 (1.3-6.7); Neutrophils Percent Auto 91.9 % (45.5-73.1); Nucleated Red Blood Cells Perc 0.2 % (0.0-0.2); Platelet Count Result 444 k/mm3 (150-375); Red Blood Count 3.89 M/mm3 (4.6-6.20); Red Cell Distribution Width 15.5 % (11.5-14.5); White Blood Count 12.5 K/mm3 (4.5-10.0)
[2021-04-08] MEDS: CISATRACURIUM BESYLATE 200 MG in DEXTROSE 5% 80 ML 11.37 ML IV CONT (05:26)
[2021-04-08] MEDS: METOCLOPRAMIDE HCL INJ 10 MG/2 ML VIAL 5 MG IV PUSH (05:29)
[2021-04-08 05:40] LABS: Glucose Point of Care 134 mg/dl (65-105)
[2021-04-08 05:40] LABS: Magnesium 2.7 mg/dL (1.6-2.3)
[2021-04-08 05:46] LABS: CRP 19.5 mg/dL (<1.0)
[2021-04-08] MEDS: CENTRAL LINE FLUSH 10 ML IV PUSH (05:46)
[2021-04-08 05:48] LABS: INR 1.3; Prothrombin Time 15.6 Seconds (11.1-14.7)
[2021-04-08 05:51] LABS: D Dimer 3.86 ug/mL (<0.48)
--- NOTE | 2021-04-08 06:36 | PC.NURSE ---
dr Moreno informed of decreased blood pressure , orders received
[2021-04-08] MEDS: SODIUM CHLORIDE 0.9% IV 1,000 ML 999 ML (06:38)
[2021-04-08] MEDS: SODIUM CHLORIDE 0.9% IV 500 ML 999 ML IV CONT (07:00)
[2021-04-08 07:33] LABS: Anion Gap 7 mmol/L (8-16); Blood Urea Nitrogen 56 mg/dL (9-20); Calcium 8.4 mg/dL (8.4-10.2); Carbon Dioxide 31 mmol/L (22-30); Chloride 105 mmol/L (98-107); Estimated CRCL calculation 68 ml/min; Estimated Glomerular Filt Rate 52; Glucose 152 mg/dL (65-110); Potassium 4.3 mmol/L (3.4-5.0); Sodium 143 mmol/L (137-145)
[2021-04-08] MEDS: NOREPINEPHRINE 8 MG/D5W 250 ML 8 MG/250 ML BAG 9.38 MG IV CONT (08:13)
[2021-04-08] MEDS: DORNASE ALFA INH SOLN 1 MG/ML 2.5 ML AMP 2.5 MG INHALATION (08:43)
[2021-04-08] MEDS: BUDESONIDE RESPULE NEB 0.5 MG/2 ML AMP INHALATION (08:44)
[2021-04-08 09:00] LABS: Lactic Acid Reflex 2.6 mmol/L (0.7-2.1)
[2021-04-08 09:05] LABS: Alanine Aminotransferase 29 U/L (4-50); Aspartate Amino Transferase 40 U/L (17-59)
[2021-04-08] MEDS: EPOPROSTENOL SODIUM 0.5 MG VIAL 1 MG INHALATION (09:10)
[2021-04-08] MEDS: DEXAMETHASONE SOD PHOS INJ 4 MG/ML VIAL 6 MG IV PUSH (09:16)
[2021-04-08] MEDS: PANTOPRAZOLE SODIUM IV 40 MG VIAL IV PUSH (09:17)
[2021-04-08] MEDS: BARICITINIB 2 MG TABLET PO (09:17)
[2021-04-08] MEDS: MINERAL OIL/WHITE PETROLATUM OINTMENT 1 APPLIC EACH EYE (09:17)
[2021-04-08] MEDS: ENOXAPARIN 40 MG/0.4 ML SYRINGE SUB-Q (09:17)
[2021-04-08] MEDS: polyethylene glycoL 3350 17 GM POWD.PACK PO (09:18)
--- NOTE | 2021-04-08 09:25 | WPDINTPN ---
Progress Note: A&P Assessment and Plan (1) Acute respiratory failure with hypoxia: Code(s): J96.01 - Acute respiratory failure with hypoxia Status: Acute Assessment and Plan: Patient presented to the hospital on 03/28/2021 with SOB, decreased smell and taste, cough, decreased appetite. 04/01 Pt was on BiPAP, 100% FiO2, hypoxia with O2 sats in the early and mid 80s. - Patient was brought to the ICU intubated Over last 24 hours patient is deteriorated significantly with increased hypoxia and increased oxygen requirement Peep was increased to 16. He has been on 100% FiO2. Nimbex infusion was started. Patient did not tolerate prone position and had to be switched to supine due to saturations in 70s His saturation has been low this morning and patient had to be bagged and despite bag ventilation his saturation remained in 70%. Patient was suction repositioned and Flolan was initiated without any improvement. Chest x-ray reviewed and suggest secondary bacterial pneumonia as patient was also febrile overnight Blood culture and sputum cultures have been ordered Patient started on vancomycin and imipenem -continue bronchodilators and Pulmicort -sedated with fentanyl Versed (2) Pneumonia due to COVID-19 virus: Code(s): U07.1 - COVID-19; J12.82 - Pneumonia due to coronavirus disease 2019 Status: Acute Assessment and Plan: SARS-CoV-2 positive on 03/28/2021, unvaccinated -continue dexamethasone although patient has completed a 10 day course -continue baricitinib -patient to receive a total of 10 days of remdesivir -inflammatory markers are elevated, will continue to trend -continue droplet, airborne, contact isolation/precautions -blood culture 1/2 growing 2 different strain coag-negative staph which is likely a contaminant. (3) New onset type 2 diabetes mellitus: Code(s): E11.9 - Type 2 diabetes mellitus without complications Status: Acute Assessment and Plan: New onset diabetes mellitus -continue Lantus -continue sliding scale insulin (4) Transaminitis: Code(s): R74.01 - Elevation of levels of liver transaminase levels Status: Acute Assessment and Plan: Likely related to hypoxia due to COVID pneumonia -LFTs improved (5) Epilepsy: Qualifiers: Epilepsy type: unspecified Code(s): G40.909 - Epilepsy, unspecified, not intractable, without status epilepticus Status: Acute Assessment and Plan: History of epilepsy, continue phenobarbital and topiramate (6) DVT prophylaxis: Code(s): Z29.9 - Encounter for prophylactic measures, unspecified Status: Acute Assessment and Plan: Continue enoxaparin (7) Dietary counseling and surveillance: Code(s): Z71.3 - Dietary counseling and surveillance Status: Acute Assessment and Plan: Tolerating tube feeds -positive bowel movements (8) Sepsis: Code(s): A41.9 - Sepsis, unspecified organism Status: Acute Assessment and Plan: It appears the patient has developed a secondary bacterial infection Blood cultures and sputum cultures were sent Patient started on vancomycin and imipenem (9) Shock: Code(s): R57.9 - Shock, unspecified Status: Acute Assessment and Plan: Secondary to sepsis, high PEEP and sedation Patient was given 1 L saline bolus overnight and was given another 500 cc this morning Levophed started Lactate was checked and was 2.6 Additional Plan Stress ulcer prophylaxis -PPI Code status: Full code. Patient's daughter was notified by nursing staff overnight of his deterioration and she and patient's girlfriend came to visit him overnight. I spoke to patient's daughter by phone this morning guarding patient's deterioration over last 24 hours. I updated her with patient's current status of the fact that patient's oxygen level has been between 40-70% despite all aggressive management and therapy. I also mentioned drop in hi
[2021-04-08] MEDS: SODIUM BICARBONATE 8.4% 50 MEQ/50 ML SYRINGE 100 MEQ IV PUSH (09:30)
[2021-04-08] MEDS: REMDESIVIR 100 MG/NS 250 ML 100 MG/250 ML BAG 250 MG IVPB (09:58)
[2021-04-08] MEDS: MORPHINE SULFATE INJ (*CRX) 10 MG/ML AMP 5 MG IV PUSH (10:31)
[2021-04-08] MEDS: LORazepam INJ (*CRX) 2 MG/ML VIAL IV PUSH (10:32)
--- NOTE | 2021-04-08 10:36 | P.PNCROSS_ITS ---
Event Note Event Note Event Note: I met with patient's daughter and girlfriend in presence of medical records field technician Srinivas to dis cuss medical decisions and level of care regarding patient's condition. I spoke to patient's daughter earlier by phone. We had a long discussion and I again updated both of them with patient's current condition, deterioration over last 24 hours, continued low oxygen saturation despite maximum ventilator therapy and inhaled Flolan. We discussed the patient's persistent oxygen level of 40-50% was not compatible with life and patient was eventually going to have a cardiac arrest. I discussed option of DNR and comfort care with. I answered all their questions. They both decided, in accordance with pt's wishes, to discontinue all medical therapy and institute comfort measures only. I explained them the process of comfort care in which we will discontinue neuromuscular sunita and once the effect of Nimbex wears off, patient will be palliatively extubated. I will use opioids, anxiolytics and other agents on as needed basis to promote comfort and discontinue all medical therapy, lab testing and invasive monitoring. They both verbalized understanding and agreed with the plan. Total time spent 35 minutes
[2021-04-08 11:48] LABS: Reflex Lactic Acid Yes or No Add Lactic
--- NOTE | 2021-04-08 12:28 | PM.DDS ---
Discharge Summary Date and Time Date of : 04/08/21 Time of : 10:48 Provider Pronounced By: brianne means rn and kayleen richter rn Probable Cause of Probable Cause of : COVID-19 PNA Summary Hospital Course: Patient is a 55-year-old male with a history of seizures who is on vaccinated against COVID who presented emergency room for shortness of breath and fever. CBC showed white blood cell count 7.3, hemoglobin 12.6, hematocrit 37.7, platelets 217. BMP relatively normal with exception of sodium 136 and glucose 153. Chest x-ray showed moderate amount of pneumonia possibly COVID-19. He is admitted to the hospitalist service and initially started on antibiotics but these were stopped once his COVID test came back positive. He was then started on steroids and Remdesivir. He required more and more oxygen and was eventually moved to the IMU. He was on a BiPAP with oxygen saturations in the 80s and it was recommended that he be intubated. He was intubated on 04/01/21. He was stable for multiple days but on 04/07/21 he started having low oxygen saturations and blood pressures. His FiO2 was increased to 100% and he was started on Flolan day and Levophed but did not improve. Dr. Moreno spoke with the family about the plan of care and they transitioned to comfort care. Pt 04/08/21 at 10:48 Additional Data Confirmation of as documented by pronouncing clinician: Pupillary Reflex, Palpable Pulses, Response to Stimuli, Heart Tones and Breath Sounds Name of Provider Notified: dr. moreno Time Provider Notified: 10:48 Provider Requests Autopsy: No Family Requests Autopsy: No [employer] Notified: Yes Date [facility] Notified of : 04/08/21 Time [facility] Notified of : 10:50
[2021-04-11 07:16] LABS: Prolactin 19.8 ng/mL (***)
== END 2021-04-08 10:48 | disposition expired | DRG 130 ==
LOC: ANHED 16:37 → ANH3MEDSUR 17:37 → ANHIMU 03-31 21:57 → ANHICU 04-01 12:55
PROVIDERS: Emergency Medicine; Internal Medicine; Nurse Practitioner; Physician Assistant; Admitting Provider Internal Medicine; Emergency Provider Emergency Medicine; PCP Internal Medicine; Visit Provider Physician Assistant
DX: U07.1 COVID-19 (principal); G40.909 Epilepsy, unspecified, not intractable, without status epilepticus; Z66 Do not resuscitate; Z51.5 Encounter for palliative care; Z68.41 Body mass index [BMI] 40.0-44.9, adult; R50.9 Fever, unspecified; R51.9 Headache, unspecified; R43.8 Other disturbances of smell and taste; J12.82 Pneumonia due to coronavirus disease 2019; N17.9 Acute kidney failure, unspecified; E66.01 Morbid (severe) obesity due to excess calories; E11.65 Type 2 diabetes mellitus with hyperglycemia; J96.01 Acute respiratory failure with hypoxia; R74.01 Elevation of levels of liver transaminase levels; A41.9 Sepsis, unspecified organism; R65.21 Severe sepsis with septic shock; G47.33 Obstructive sleep apnea (adult) (pediatric); Z99.89 Dependence on other enabling machines and devices
CPT/HCPCS: 31500; 36415; 36569; 36600; 71045; 71275; 80048; 80053; 80074; 80076; 80184; 80185; 81001; 82375; 82550; 82728; 82805; 82948; 83036; 83050; 83605; 83615; 83735; 83880; 84100; 84146; 84443; 84450; 84460; 85025; 85380; 85610; 86140; 87040; 87070; 87077; 87186; 87205; 87426; 93005; 94002; 94003; 94640; 99285; A9270; C1751; C9113; C9803; J0456; J0696; J0743; J1100; J1650; J1815; J1940; J2060; J2250; J2270; J2704; J2765; J3010; J3370; J7030; J7050; Q9967; U0003; U0005